=== PATIENT | female | born 1960 | race Caucasian/White ===

== ENCOUNTER → 2021-04-02 11:27 | Outpatient (CLI) | payer OTHER, SELFPAY ==
--- NOTE | 2021-04-02 11:32 | XR_ITS ---
PROCEDURE: XR CHEST PORTABLE CLINICAL HISTORY: COVID OUTPATIENT COMPARISON: CR CXR CHEST(2 VIEWS-NOT PORTABLE) from 04/23/2014 CR CXR CHEST(2 VIEWS-NOT PORTABLE) from 09/17/2015 FINDINGS: The cardiomediastinal silhouette and pulmonary vascularity are within normal limits. The lungs are clear without infiltrates, suspicious nodules, or pleural effusions. No acute bony abnormalities. IMPRESSION: No acute findings. Dictated by: Reuben Cruz MD 04/02/2021 12:07 Reuben Cruz MD in OV 04/02/2021 12:07
[2021-04-02 12:00] LABS: Influenza A, PCR Not Detected (NotDetected); Influenza B, PCR Not Detected (NotDetected)
[2021-04-02 12:13] LABS: Basophils # 0.1 K/mm3 (0-0.2); Eosinophils # 0.2 K/mm3 (0.0-0.4); Eosinophils % 4.4 % (0.1-12.0); Hemoglobin 14.4 g/dL (12.2-16.2); Lymphocytes # 1.7 K/mm3 (0.7-4.5); Mean Corpuscular Hemoglobin 30.4 pg (27.0-31.2); Mean Corpuscular Volume 94.9 fl (81-99); Mean Platelet Volume 10.3 fl (7.4-10.4); Monocytes # 0.3 K/mm3 (0.1-1.0); Monocytes % 5.8 % (1.7-9.3); Neutrophils # 2.9 K/mm3 (1.8-7.8); Neutrophils % 55.8 % (37.0-80.0); Platelet Count 135 K/mm3 (142-424); Red Blood Count 4.74 M/mm3 (4.20-5.40); Red Cell Distribution Width 15.2 % (11.5-17.5); White Blood Count 5.1 K/mm3 (4.8-10.8)
[2021-04-02 13:37] LABS: Coronavirus 19, PCR Detected (NotDetected)
== END ==
PROVIDERS: PCP Family Medicine; Visit Provider Nurse Practitioner
DX: U07.1 COVID-19 (principal)
CPT/HCPCS: 36415; 71045; 85025; C9803; U0003; U0005

== ENCOUNTER → 2021-04-04 08:10 | Outpatient (CLI) | payer OTHER, SELFPAY ==
[2021-04-04] VITALS (9 sets, daily range): BP systolic 148–174; BP diastolic 71–89; PULSE 55–60; RESP 18; TEMP 36.4–37; O2SAT 90–97
--- NOTE | 2021-04-04 10:07 | PC.NURSE ---
PT DISCHARGED HOME AT THIS TIME. PT STABLE
== END | disposition home or self-care (01) ==
LOC: COVID.OUT 04-16 06:11 → INF 04-16 06:11
PROVIDERS: PCP Nurse Practitioner; Visit Provider Nurse Practitioner
DX: U07.1 COVID-19 (principal); Z23 Encounter for immunization
CPT/HCPCS: 96365

== ENCOUNTER → 2021-10-06 08:16 | Outpatient (CLI) | payer OTHER, SELFPAY | PROVIDERS: PCP Family Medicine; Visit Provider Internal Medicine | DX: Z01.812 Encounter for preprocedural laboratory examination (principal); Z20.822 Contact with and (suspected) exposure to COVID-19; R13.10 Dysphagia, unspecified | CPT/HCPCS: C9803; U0003; U0005 ==

== ENCOUNTER 2021-10-08 09:36 | Day surgery (SDC) | payer OTHER, SELFPAY ==
[2021-10-02 14:22] VITALS: BMI 31.1
[2021-10-08 10:34] VITALS: BP 141/78; PULSE 63; RESP 18; TEMP 37.1; O2SAT 94
--- NOTE | 2021-10-08 11:22 | P.PN_ITS ---
[facility] Anesthesia Checklist - Structural Data Admitted From: Home Planned Operative Procedure/s: egd Consent for Planned Operative Procedure(s) Verified: Yes - Airway Assessment C-Spine Mobility Assessed: Yes TMJ Mobility Assessed: Yes Dentition: Dentures-good fit - Neurological Assessment Level of Consciousness: Awake, Alert, Appropriate - Anesthesia Plan Anesthesia Risk discussed: Yes Anesthesia Plan: Verified ASA Class: II Anesthesia Type: MAC [facility] History I have reviewed the patient's past medical history: Yes Medical History: Reports:: Seizures (8 years ago) Denies:: Cancer, Diabetes Mellitus Type 1, Diabetes Mellitus Type 2, Internal Pacemaker, MRSA *Have you ever received a pneumonia vaccine?: No *Have you received a flu vaccine this season?: No Anesthesia experience/problems:: none Other Surgeries: No: Pacemaker Amputation: No - *Social History Last grade of school completed: High school graduate Smoking Status: Never smoker Alcohol Intake: never Substance Use Type: denies use *Occupational Status:: employed Household Members: spouse *Travel in the last 8 weeks: None Family Hx:: Cancer
[2021-10-08 11:31] VITALS: O2SAT 94
--- NOTE | 2021-10-08 11:43 | HMH.SCOPE ---
- Procedure: Date: 10/08/21 Patient Date of :: 1960 Procedure Performed:: EGD Indications:: Dysphagia Performing Provider:: Vern Larsen MD Referring Provider:: Trey Diaz MD Sedation:: See RN notes Procedure:: The gastroscope was gently passed through the incisoral orifice into the oral cavity and under direct visualization the esophagus was intubated. The endoscope was passed down the esophagus, through the stomach, and into the duodenum. Color, texture, mucosa, and anatomy of the esophagus, stomach, and duodenum were carefully examined with the scope. Findings:: Oropharynx: normal Esophagus: Schatzki ring. Cold forceps biopsies obtained to break apart the ring. Dilatation performed sequentially with 18-20 mm tts balloon. EG Junction: Measured at 35 cm Cardia: Hiatal hernia 3 cm in size Fundus: normal Body: normal Antrum: normal Duodenal bulb: normal Duodenum (second and third portion): normal Recommendations:: Return for EGD with esophageal dilatation as needed Complications:: None Estimated blood obtained (mL): 2
[2021-10-08 11:45] VITALS: BP 117/71; PULSE 83; RESP 18; TEMP 36.4; O2SAT 94
[2021-10-08 11:55] VITALS: BP 130/71; PULSE 68; RESP 18; TEMP 36.4; O2SAT 98
[2021-10-08 12:15] VITALS: BP 128/81; PULSE 72; RESP 18; TEMP 36.4; O2SAT 99
== END 2021-10-08 12:15 | disposition home or self-care (01) ==
LOC: OUTP 09:37
PROVIDERS: PCP Family Medicine; Visit Provider Internal Medicine
PROC: 0DJ08ZZ Inspection of Upper Intestinal Tract, Via Natural or Artificial Opening Endoscopic (ICD-10-PCS; CPT 43235; principal; 2021-10-08 11:00)
DX: R13.12 Dysphagia, oropharyngeal phase (principal); I10 Essential (primary) hypertension; K22.2 Esophageal obstruction; K44.9 Diaphragmatic hernia without obstruction or gangrene
CPT/HCPCS: 43249; 43239; C1726

== ENCOUNTER → 2021-10-25 08:01 | Outpatient (CLI) | payer OTHER, SELFPAY ==
--- NOTE | 2021-10-25 08:06 | XR_ITS ---
PROCEDURE INFORMATION: Exam: XR Right Knee Exam date and time: 10/25/2021 8:07 AM Age: 61 years old Clinical indication: Pain; Knee; Bilateral; Additional info: Pain bilateral TECHNIQUE: Imaging protocol: Radiologic exam of the Right knee. Views: 3 views. COMPARISON: No relevant prior studies available. FINDINGS: Bones/joints: Mild degenerative changes. No evidence of an acute fracture or significant effusion. Soft tissues: Normal. IMPRESSION: No acute process.
--- NOTE | 2021-10-25 08:06 | XR_ITS ---
PROCEDURE INFORMATION: Exam: XR Left Knee Exam date and time: 10/25/2021 8:07 AM Age: 61 years old Clinical indication: Pain; Knee; Bilateral; Additional info: Bilateral knee oa TECHNIQUE: Imaging protocol: Radiologic exam of the Left knee. Views: 3 views. COMPARISON: No relevant prior studies available. FINDINGS: Bones/joints: Mild degenerative changes. No evidence of an acute fracture or significant effusion. Soft tissues: Normal. IMPRESSION: No acute process.
== END ==
PROVIDERS: PCP Family Medicine; Visit Provider Family Medicine
DX: M17.0 Bilateral primary osteoarthritis of knee (principal)
CPT/HCPCS: 73562

== ENCOUNTER 2022-03-19 10:00 | Outpatient (RCR) | payer OTHER, SELFPAY | END 2022-03-19 10:05 | disposition home or self-care (01) | LOC: PT 10:00 | PROVIDERS: PCP Family Medicine; Visit Provider Family Medicine | DX: M17.0 Bilateral primary osteoarthritis of knee | CPT/HCPCS: 97110; 97163; 97164; 97530 ==

== ENCOUNTER → 2022-04-27 14:39 | Outpatient (CLI) | payer OTHER, SELFPAY ==
--- NOTE | 2022-04-27 14:44 | CT_ITS ---
FINAL REPORT CLINICAL HISTORY: HX OF SMOKING, quit 2 years ago. smoked 1 ppd x 14 years. FINDINGS: Axial images were obtained from the lung apex to the mid abdomen by computed tomography. Low-dose protocol was utilized. CTDl vol(mGy): 2.90 DLP (mGy-cm): 106.55 FINDINGS: There is no axillary adenopathy. There is no hilar or mediastinal adenopathy. The heart size is normal. Moderate coronary artery calcifications are noted. There is no pericardial or pleural effusion. Limited images of the upper abdomen demonstrate a small hiatal hernia. Lung window images demonstrate no suspicious infiltrate or nodule. There is mild scarring. IMPRESSION: Lung RADS category 1. Recommend 12 month follow-up low-dose chest CT. Reviewed, Interpreted and Dictated by Dion Worthy III, MD Transcribed by Radhika Velazquez Authenticated and . [facility]
--- NOTE | 2022-04-27 14:44 | MM_ITS ---
PROCEDURE INFORMATION: Exam: MG Bilateral Screening 3D Mammography Exam date and time: 04/27/2022 2:54 PM Age: 61 years old Clinical indication: Screening. Her maternal grandmother had breast cancer. TECHNIQUE: Imaging protocol: Bilateral Screening tomosynthesis and 2D mammography including computer-aided detection (CAD) when performed. COMPARISON: No relevant prior studies available.If prior mammograms are provided, I am happy to add an addendum. FINDINGS: MAMMOGRAPHY: Breast composition: There are scattered areas of fibroglandular density. Mass: None. Architectural distortion/Asymmetric density: Right focal asymmetry and architectural distortion, up to 2.0 cm, in the right breast at 12 o'clock, middle to posterior 3rd, approximately 7-11 cm from the nipple, best seen CC frame 61 bend MLO frame 58. Calcifications: No suspicious calcifications. Skin thickening: None. Axillary adenopathy: None. IMPRESSION: Patient will be recalled for right diagnostic spot compression in CC and MLO projections as well as full field lateral and right sonography for further evaluation of right focal asymmetry and architectural distortion. If prior mammograms are provided, am happy to an addendum. ASSESSMENT: BI-RADS Category 0: Incomplete- Need Additional Imaging Evaluation and/or Prior Mammograms for Comparison
== END ==
PROVIDERS: PCP Family Medicine; Visit Provider Family Medicine
DX: Z87.891 Personal history of nicotine dependence (principal); Z12.2 Encounter for screening for malignant neoplasm of respiratory organs; Z12.31 Encounter for screening mammogram for malignant neoplasm of breast
CPT/HCPCS: 71271; 77063; 77067

== ENCOUNTER → 2022-05-19 14:26 | Outpatient (CLI) | payer OTHER, SELFPAY ==
--- NOTE | 2022-05-19 14:29 | MM_ITS ---
To PROCEDURE INFORMATION: Exam: US Right Breast, Complete MG Right Diagnostic Breast Tomosynthesis Exam date and time: 05/19/2022 3:07 PM Age: 61 years old Clinical indication: Recall on the basis of screening mammogram 04/27/2022 further evaluation right focal asymmetry and architectural distortion. TECHNIQUE: Imaging protocol: Complete ultrasound of all four quadrants of the Right breast and the retroareolar regions, including ultrasound of the axilla when performed. Right Diagnostic tomosynthesis and 2D mammography including computer-aided detection (CAD) when performed. Unilateral or bilateral exam. COMPARISON: MG MM DIG MAMM DX UNILAT RT CAD 05/19/2022 2:32 PM FINDINGS: MAMMOGRAPHY: Spot compression demonstrates persistent suspicious 2.0 cm focal asymmetry and architectural distortion in the right breast at 12 o'clock middle to posterior 3rd. ULTRASOUND: Right sonography, all 4 quadrants, retroareolar and axilla demonstrate no sonographic findings and sonographically unremarkable right axillary lymph node. IMPRESSION: Stereotactic biopsy recommended for suspicious right 12 o'clock focal asymmetry and architectural distortion. ASSESSMENT: BI-RADS Category 4: Suspicious
== END ==
PROVIDERS: PCP Family Medicine; Visit Provider Physician Assistant
DX: R92.8 Other abnormal and inconclusive findings on diagnostic imaging of breast (principal); N63.10 Unspecified lump in the right breast, unspecified quadrant
CPT/HCPCS: 76641; 77061; 77065; G0279

== ENCOUNTER → 2022-06-01 07:46 | Outpatient (CLI) | payer OTHER, SELFPAY ==
--- NOTE | 2022-06-01 07:54 | MM_ITS ---
FINAL REPORT CLINICAL HISTORY: post us biopsy, clip placement COMPARISON: 04-27-22 FINDINGS: STEREOTACTIC GUIDED RIGHT BREAST BIOPSY, CLIP PLACEMENT, AND POST BIOPSY MAMMOGRAM Indication: Abnormal mammogram/density/mass Findings: The stereotactic guided breast biopsy procedure was explained in detail to the patient including potential risk and benefits. The patient voiced an understanding of the procedure, was given an opportunity to ask questions, after which informed consent was obtained. The patient was positioned upon the stereotactic unit in the supine position. A superior to inferior approach was utilized. The breast was prepped in the usual sterile fashion. Subcutaneous soft tissues were anesthetized with lidocaine with epinephrine. Subsequently, with intermittent stereotactic guidance, the stereotactic biopsy needle was advanced into the breast in the region of the mammographic abnormality corresponding to recent diagnostic mammogram. Multiple vacuum assisted core samples were obtained. Sampling was thought to be adequate and the biopsy clip marker was deployed in the region of biopsy. Additional imaging as detailed below was performed. Post procedure routine CC and MLO view mammogram: Post biopsy changes. Biopsy marker clip noted to be in the appropriate location. Postbiopsy changes with small amount of hemorrhage would obscure the region of the underlying asymmetric density. Patient tolerated the procedure well. No immediate complications. IMPRESSION: 1. Technically successful stereotactic guided biopsy of right breast lesion asymmetric density 2. Biopsy marker clip deployed 3. Post biopsy mammogram obtained as above Authenticated and ERN
== END ==
PROVIDERS: PCP Family Medicine; Visit Provider Physician Assistant
DX: R92.8 Other abnormal and inconclusive findings on diagnostic imaging of breast (principal)
CPT/HCPCS: 19081; 77065

== ENCOUNTER 2024-01-04 12:50 | Outpatient (CLI) | payer OTHER, SELFPAY ==
[2024-01-04 20:06] LABS: Basophils # 0.1 K/mm3 (0-0.2); Basophils % 1.5 % (0.1-2.0); Eosinophils # 0.6 K/mm3 (0.0-0.4); Eosinophils % 7.8 % (0.1-12.0); Hematocrit 46.3 % (37.0-47.0); Hemoglobin 13.8 g/dL (12.2-16.2); Lymphocytes # 2.3 K/mm3 (0.7-4.5); Lymphocytes % 32.3 % (10-50); Mean Corpuscular HGB Conc 29.8 g/dL (31.8-35.4); Mean Corpuscular Volume 107.5 fl (81-99); Mean Platelet Volume 10.7 fl (7.4-10.4); Monocytes # 0.4 K/mm3 (0.1-1.0); Neutrophils # 3.7 K/mm3 (1.8-7.8); Neutrophils % 52.4 % (37.0-80.0); Platelet Count 193 K/mm3 (142-424); Red Blood Count 4.31 M/mm3 (4.20-5.40); Red Cell Distribution Width 16.6 % (11.5-17.5); White Blood Count 7.1 K/mm3 (4.8-10.8)
[2024-01-04 22:33] LABS: Alanine Aminotransferase 34 U/L (12-78); Albumin Level 4.3 g/dl (3.5-5.0); Albumin/Globulin Ratio 1.4 (1.1-1.8); Alkaline Phosphatase 82 U/L (38-126); Aspartate Amino Transferase 35 U/L (14-36); Bilirubin,Total 0.5 mg/dl (0.2-1.3); Blood Urea Nitrogen 29 mg/dl (7-17); Calcium 10.4 mg/dl (8.4-10.2); Carbon Dioxide 25 mmol/L (22.0-30.0); Chloride 107 mmol/L (98-107); Estimated Glomerular Filt Rate 56 ml/min (>60); GFR (African American) 68 ML/MIN (>60); Glucose 97 mg/dl (74-100); Sodium 141 mmol/L (136-145); Total Protein,Serum 7.3 g/dl (6.3-8.2)
[2024-01-04 22:56] LABS: Thyroid Stimulating Hormone 0.96 uIU/mL (0.465-4.68)
[2024-01-04 23:16] LABS: Vitamin B12 > 1000 pg/mL (239-931)
[2024-01-16 03:37] LABS: 1,25 Dihydroxy Vitamin D 22 pg/mL (.); 1,25-Dihydroxy, Vitamin D-2 <10 pg/mL (.); 1,25-Dihydroxy, Vitamin D-3 22 pg/mL (.)
== END 2024-01-04 23:59 | disposition home or self-care (01) ==
LOC: LAB.DROPOF 01-05 13:50
PROVIDERS: PCP Family Medicine; Visit Provider Family Medicine
DX: R53.83 Other fatigue (principal); I10 Essential (primary) hypertension; Z86.000 Personal history of in-situ neoplasm of breast
CPT/HCPCS: 80050; 80053; 82607; 82652; 84443; 85025

== ENCOUNTER 2024-04-04 14:00 | Outpatient (CLI) | payer OTHER, SELFPAY ==
[2024-04-04 18:21] LABS: Coronavirus 19, PCR Not Detected (NotDetected); Influenza A, PCR Not Detected (NotDetected); Influenza B, PCR Not Detected (NotDetected)
[2024-04-04 18:28] LABS: Basophils # 0.1 K/mm3 (0-0.2); Basophils % 1.4 % (0.1-2.0); Eosinophils # 0.4 K/mm3 (0.0-0.4); Eosinophils % 5.1 % (0.1-12.0); Hematocrit 43.2 % (37.0-47.0); Hemoglobin 14.3 g/dL (12.2-16.2); Lymphocytes # 2.3 K/mm3 (0.7-4.5); Lymphocytes % 28.3 % (10-50); Mean Corpuscular Hemoglobin 33.7 pg (27.0-31.2); Mean Corpuscular Volume 102.1 fl (81-99); Mean Platelet Volume 10.3 fl (7.4-10.4); Monocytes # 0.4 K/mm3 (0.1-1.0); Monocytes % 5.4 % (1.7-9.3); Neutrophils # 4.8 K/mm3 (1.8-7.8); Neutrophils % 59.8 % (37.0-80.0); Platelet Count 200 K/mm3 (142-424); Red Blood Count 4.23 M/mm3 (4.20-5.40)
== END 2024-04-04 23:59 | disposition home or self-care (01) ==
LOC: LAB.DROPOF 04-05 07:46
PROVIDERS: PCP Family Medicine; Visit Provider Family Medicine
DX: J06.9 Acute upper respiratory infection, unspecified (principal)
CPT/HCPCS: 85025; 87636

== ENCOUNTER 2024-07-11 10:06 | Outpatient (CLI) | payer OTHER, SELFPAY ==
[2024-07-11 21:35] LABS: Albumin Level 4.5 g/dl (3.5-5.0); Chloride 103 mmol/L (98-107); Sodium 139 mmol/L (136-145)
[2024-07-11 21:36] LABS: Potassium 5.5 mmoL/L (3.5-5.1)
[2024-07-11 21:38] LABS: Alanine Aminotransferase 26 U/L (12-78); Albumin/Globulin Ratio 1.7 (1.1-1.8); Anion Gap 14.5 mEq/L (5-15); Aspartate Amino Transferase 27 U/L (14-36); Blood Urea Nitrogen 32 mg/dl (7-17); Carbon Dioxide 27 mmol/L (22.0-30.0); Estimated Glomerular Filt Rate 35 ml/min (>60); GFR (African American) 43 ML/MIN (>60); Globulin 2.7 g/dL (1.3-3.2); Total Protein,Serum 7.2 g/dl (6.3-8.2)
[2024-07-11 21:39] LABS: Alkaline Phosphatase 112 U/L (38-126); Bilirubin,Total 0.4 mg/dl (0.2-1.3); Glucose 87 mg/dl (74-100)
== END 2024-07-11 23:59 | disposition home or self-care (01) ==
LOC: LAB.DROPOF 07-12 10:07
PROVIDERS: PCP Family Medicine; Visit Provider Family Medicine
DX: I10 Essential (primary) hypertension (principal)
CPT/HCPCS: 80053

== ENCOUNTER 2024-07-13 12:32 | Outpatient (CLI) | payer OTHER, SELFPAY ==
[2024-07-13 13:19] LABS: Chloride 104 mmol/L (98-107); Sodium 138 mmol/L (136-145)
[2024-07-13 13:22] LABS: Blood Urea Nitrogen 27 mg/dl (7-17); Estimated Glomerular Filt Rate 46 ml/min (>60); GFR (African American) 55 ML/MIN (>60)
[2024-07-13 13:23] LABS: Calcium 9.8 mg/dl (8.4-10.2); Carbon Dioxide 27 mmol/L (22.0-30.0); Glucose 119 mg/dl (74-100)
== END 2024-07-13 23:59 | disposition home or self-care (01) ==
LOC: LAB 12:33
PROVIDERS: PCP Family Medicine; Visit Provider Family Medicine
DX: E87.5 Hyperkalemia (principal)
CPT/HCPCS: 36415; 80048

== ENCOUNTER 2024-09-24 13:45 | Emergency (ER) | payer OTHER, SELFPAY ==
[2024-09-24 14:25] VITALS: BP 152/92; PULSE 122; RESP 18; TEMP 37; O2SAT 99; BMI 31.8
[2024-09-24 15:30] VITALS: BP 147/93; PULSE 124; O2SAT 96
--- NOTE | 2024-09-24 15:37 | PC.NURSE ---
Dr Jonas at bedside suturing lac
--- NOTE | 2024-09-24 15:50 | HMH.EDGENADL ---
Discharge Plan Disposition Patient Disposition: Home, Self-Care Prescriptions Prescriptions: New cephalexin 500 mg capsule 1,000 mg PO BID 7 Days Qty: 28 0RF No Action Acidophilus Capsule 100 mg PO DAILY calcium polycarbophil 625 mg tablet 1,250 mg PO DAILY mecobalamin (vitamin B12) 5,000 mcg tablet,chewable 5,000 mcg PO DAILY calcium citrate 1,000 mg tablet 1,200 mg PO DAILY Acidophilus Capsule 2,000 mmu cells PO DAILY telmisartan 20 mg tablet 20 mg PO DAILY Qty: 30 2RF furosemide 20 mg tablet 20 mg PO DAILY Patient Comments: TAKE ONE TABLET BY MOUTH EVERY DAY letrozole 2.5 mg tablet 2.5 mg PO HS Patient Comments: TAKE 1 TABLET ORALLY ONCE DAILY allopurinol 300 mg tablet 300 mg PO DAILY Qty: 90 1RF divalproex 250 mg tablet,delayed release (DR/EC) 500 mg PO DAILY Qty: 180 1RF pregabalin 75 mg capsule 75 mg PO HS Qty: 60 3RF albuterol sulfate 90 mcg/actuation HFA aerosol inhaler 1 puff inhalation DAILYP PRN (Reason: copd) Qty: 8.5 2RF tramadol 50 mg tablet 50 mg PO .FOUR TIMES DAILY PRN (Reason: pain) Qty: 90 1RF esomeprazole magnesium 40 mg capsule,delayed release(DR/EC) See Rx Instructions .ROUTE .COMPLEX Qty: 90 1RF Dose Instruction: TAKE ONE CAPSULE BY MOUTH EVERY DAY Rx Instructions: TAKE ONE CAPSULE BY MOUTH EVERY DAY metoclopramide HCl 5 mg tablet 2.5 mg PO TID PRN (Reason: GERD) Referrals Follow up/Referrals: Loc Wall DO [Primary Care Provider] - See instructions Activity Restrictions/Add. Instructions Additional Instructions/Restrictions: Call your family doctor to establish care for this visit to the emergency department and schedule follow-up within 48 hours to ensure improvement. If you have any worsening of your condition or any other concerning signs or symptoms, return to the emergency department or your primary care doctor for further evaluation. Warm soapy water, dab dry. Keflex twice daily for 5 days Clinical Impressions Clinical Impression: Laceration of leg Instructions Patient Instructions: DI for Laceration Repair Print Language Print Language: Brazilian Discharge ED Provider: Atul Jonas General Adult HPI General Chief complaint: Wound/Laceration Stated complaint: [id number] laceration L leg Time Seen by Provider: 09/24/24 15:04 Mode of Arrival: Ambulatory Source of Information: Patient Description of Symptoms (Recalled from ER Triage Doc. by RN): Pt presents for evaluation of left leg laceration after being shoved by her cow. Pt states the cow shoved her into a fence post and the fence pot went into her leg. Pt states her t-dap is not up to date. Pt noted to have swelling to her inner left foot. History of Present Illness HPI narrative: Please note that above description of symptoms, in this electronic medical record under categorization of recalled from ER triage doctor by RN are reflective of an initial nursing assessment, however, is not reflective of my full history and physical exam that was personally taken and clarified. Consequentially, this preceding description of symptoms, which may include the patient's categorized chief complaint in the EMR, do not reflect my personal clinical impression, and the ultimate description of history of present illness and patient stated complaints should be deferred to this section of the note. Unless stated otherwise or congruent with this section of the note, additional signs, symptoms, or incongruence should be interpreted as inaccurate with my clinical impression. Related Data Home Medications ?Medication ?Instructions ?Recorded ?Confirmed Lactobacillus acidophilus 2,000 mmu cells PO DAILY 09/01/24 09/22/24 (Acidophilus capsule) Lactobacillus acidophilus 100 mg PO DAILY 09/01/24 09/22/24 (Acidophilus capsule) calcium citrate 1,000 mg tablet 1,200 mg PO DAILY 09/01/24 09/22/24 calcium polycarbophil 625 mg tablet 1,250 mg PO DAILY 09/01/24 09/22/24 furosemide 20 mg tablet 20 mg PO DAILY 09/01/24 09/22/24 mecobalamin (vitamin B12) 5,000 5,000 mcg PO DAILY 09/01/24 09/22/24 mcg chewable tablet metoclopramide HCl 5 mg tablet 2.5 mg PO TID PRN GERD 09/01/24 09/22/24 letrozole 2.5 mg tablet 2.5 mg PO HS 09/22/24 09/22/24 Previous Rx's ?Medication ?Instructions ?Recorded allopurinol 300 mg tablet 300 mg PO DAILY gout #90 tabs 04/04/24 albuterol sulfate 90 mcg/actuation 1 puff inhalation DAILYP PRN copd 07/03/24 aerosol inhaler #8.5 grams divalproex 250 mg tablet,delayed 500 mg (2 x 250 mg) PO DAILY 07/11/24 release seizures #180 tabs pregabalin 75 mg capsule 75 mg PO HS #60 caps 07/11/24 tramadol 50 mg tablet 50 mg PO .FOUR TIMES DAILY PRN 08/23/24 pain #90 tabs telmisartan 20 mg tablet 20 mg PO DAILY #30 tabs 09/01/24 esomeprazole magnesium 40 mg See Rx Instructions .Route 09/21/24 capsule,delayed release .COMPLEX #90 caps cephalexin 500 mg capsule 1,000 mg (2 x 500 mg) PO BID 7 09/24/24 days #28 caps Allergies Allergy/AdvReac Type Severity Reaction Status Date / Time No Known Allergies Allergy Verified 09/22/24 13:17 [facility] Disclaimer: The information contained in this section may have been updated after the patient was seen, as this information can be updated by other users. Medical History Bilateral chronic knee pain Breast cancer Chronic pain of lower extremity, bilateral Fatigue History of ductal carcinoma in situ (DCIS) of right breast History of lump of right breast Hypertension Invasive ductal carcinoma of right breast URI, acute Surgical History H/O lymph node biopsy History of tooth extraction Hx of lumpectomy Right breast Social History (Updated 09/22/24 @ 13:28 by Elba Ely CMA) Smoking Status: Never smoker smoking status stop date: 1999 how long ago did patient quit smokin years ago alcohol intake: former substance use type: denies use current occupational status: unemployed Travel in the last 8 weeks?: None household members: spouse current occupation: [employer] Have you lived/traveled outside [place] in past 30 days?: No Contact w/someone who lives/traveled outside [place] past 30 days?: No Exposure to someone with infectious disease in past 14 days?: No Do you have a fever (greater than 100.4 F or 38 C)?: No Have you tested positive for COVID-19?: No Exposed to someone with COVID-19 in past 14 days?: No Do you have a sore throat?: No Do you have a cough?: No Do you have any weakness?: No Do you have any diarrhea?: No Are you experiencing any unusual bleeding?: No Do you have any muscle aches/pain?: No Do you have any abdominal pain?: No Are you experiencing loss of taste or smell?: No Other Medical History Have you received the Flu Vaccine for this season: No Have you received the Pneumonia Vaccine: No ROS Obtained: Yes All systems reviewed & no additional complaints except as documented Physical Exam General General appearance: alert Head Head exam: atraumatic and normocephalic Eye Eye exam: Present normal appearance, PERRL and EOMI Neck Neck exam: Present normal inspection, full ROM and trachea midline Respiratory Respiratory exam: Absent respiratory distress, wheezes, stridor, accessory muscle use or prolonged expiratory phase Cardiovascular Cardiovascular exam: Present other (Pulses equal symmetric in upper and lower extremities) Abdominal Exam Abdominal exam: Present soft; Absent distention, tenderness or pulsatile mass Extremities Exam Extremities exam: Absent edema Neurological Exam Neurological exam: Present alert, oriented X3 and CN II-XII intact; Absent motor sensory deficit Skin Skin exam: Present warm and dry; Absent diaphoresis or erythema Medical Decision Making Medical Records Medical records reviewed: Yes I reviewed the patient's medical records. Screening: Per USPSTF and CDC recommendations, given the prevalence of disease in our region, it is our hospital?s policy to screen for HIV and viral Hepatitis for all patients aged 18 and over and those with ongoing risk factors. Mike Inquiry Pt receiving controlled substance: No Mike was queried for this patient: No Vital Signs: 09/24/24 14:25 09/24/24 15:30 Temperature 98.6 F Temperature Source Oral Pulse Rate 124 H Pulse Rate [Right] 122 H Respiratory Rate 18 Blood Pressure 147/93 H Blood Pressure [Left Arm] 152/92 H Blood Pressure Mean [Left Arm] 112 Blood Pressure Source [Left Arm] Automatic Cuff Blood Pressure Position [Left Arm] Sitting 02 Sat by Pulse Oximetry 99 96 Oxygen Delivery Method Room Air Room Air Orders (Tests/Meds): ED MEDICATIONS Discontinued Medications Generic Name Dose Route Start Last Admin Trade Name Freq PRN Reason Stop Dose Admin Lidocaine HCl 20 ml 09/24/24 15:19 09/24/24 15:53 Lidocaine 1% 20ml Mdv IJ 09/24/24 15:20 20 ml ONCE ONE Administration Tetanus/Reduced Diphtheria/Acell Pertussis 0.5 ml 09/24/24 15:20 09/24/24 15:54 Tet/Diphth/Pert-Adult 0.5ml Syringe IM 09/24/24 15:21 0.5 ml .ONCE ONE Administration Medical Decision Narrative: This a 64-year-old female history of hypertension presenting with laceration to the posterior aspect of her left leg. She was outside trying to wrangle cows into a trailer when one of the cows pushed her, caused her to be thrown, more or less, into a aluminum fence and caught part of the hardware on the back of her left calf. Did not sustain any other trauma. Came in for further evaluation given. Does not remember last tetanus shot. It is moderately painful, made worse with bearing weight, she is able to bear weight, but has pain with it. Not on thinners, no history of diabetes. History obtained with patient. On arrival, very clinically well. She has a 4 cm complex laceration to the posterior aspect of her left calf. It was irrigated extensively, on further evaluation after irrigation, violates through subcutaneous tissue, but not into muscle tissue. No deeps were required. Was closed with 7 nylon sutures and dressed with iodoform gauze. Because patient at baseline without signs or symptoms of clinical decompensation, deemed appropriate for discharge. Results were relayed to patient who voiced understanding and were agreeable to outpatient management and follow up. I discussed my clinical impression with patient and answered all questions. At this time, the evidence for any other entities in the differential is insufficient to warrant any further testing or ED observation. This was explained as well. Advisory was given that persistent or worsening symptoms require further evaluation. I confirmed the understanding of this discussion. [employer] disclaimer Much of this encounter note is an electronic property manager spoken language to printed text. Electronic property manager of the spoken language may permit errors. Although I have reviewed the note, some errors may still exist. Procedures Laceration Laceration 1: Site: lower extremity Side (If applicable): left Size (cm): 4 Description: flap, irregular and clean Depth: simple, single layer Local Anesthetic: lidocaine 1% Amount of anesthesia used (mL): 5 Pre-repair: wound explored, irrigated extensively and deep structures intact Skin layer closed with: nylon Size (cm): 3-0 Number of sutures: 7 Technique: simple, interrupted Critical Care Critical Care Time Critical Care Time: No
[2024-09-24] MEDS: LIDOCAINE 1% 20ML MDV 20 ML IJ (15:53)
[2024-09-24] MEDS: TET/DIPHTH/PERT-ADULT 0.5ML SYRINGE 0.5 ML IM (15:54)
[2024-09-24 16:06] VITALS: BP 147/83; PULSE 116; RESP 18; TEMP 36.9; O2SAT 99
== END 2024-09-24 16:08 | disposition home or self-care (01) ==
PROVIDERS: Emergency Provider Emergency Medicine; PCP Internal Medicine
DX: S81.812A Laceration without foreign body, left lower leg, initial encounter (principal); W55.22XA Struck by cow, initial encounter; Z23 Encounter for immunization
CPT/HCPCS: 12002; 90471; 90715; 99283

== ENCOUNTER 2025-01-10 08:49 | Day surgery (SDC) | payer OTHER, SELFPAY ==
[2025-01-05 11:55] VITALS: BMI 30.4
--- NOTE | 2025-01-09 10:42 | EXP.HP ---
History of Present Illness *Admission Date: 01/10/25 *History of present illness: Mrs. Tran is a 64-year-old female who is here for screening colonoscopy. The examination is deemed medically necessary for screening colonoscopy. The patient has been seen, interviewed and examined prior to the procedure by both myself and the anesthesia provider. [facility] Disclaimer: The information contained in this section may have been updated after the patient was seen, as this information can be updated by other users. Medical History Bilateral chronic knee pain Breast cancer Chronic pain of lower extremity, bilateral Fatigue History of ductal carcinoma in situ (DCIS) of right breast History of lump of right breast Hypertension Invasive ductal carcinoma of right breast URI, acute Surgical History H/O lymph node biopsy History of tooth extraction Hx of lumpectomy Right breast Family History (Updated 01/05/25 @ 11:46 by Madison Rosenthal RN) Father Heart disease Mother Multiple sclerosis Social History Smoking Status: Former smoker tobacco type: cigarettes packs per day: 1 smoking status stop date: 1999 how long ago did patient quit smokin years ago alcohol intake: former substance use type: denies use current occupational status: retired Travel in the last 8 weeks?: None household members: spouse current occupation: [employer] Other Medical History Have you received the Flu Vaccine for this season: No Have you received the Pneumonia Vaccine: No Review of Systems Review of Systems Review of systems (narrative): Negative *Cardiovascular Comments: Negative *Gastrointestinal Comments: Negative *Genitourinary Comments: Negative *Musculoskeletal Comments: Negative *Neurologic Comments: Negative Meds Home Medications and Allergies Home Medications ?Medication ?Instructions ?Recorded ?Confirmed ?Type albuterol sulfate 90 mcg/actuation 1 puff inhalation DAILYP PRN copd 07/03/24 01/05/25 Rx aerosol inhaler #8.5 grams pregabalin 75 mg capsule 75 mg PO HS #60 caps 07/11/24 01/05/25 Rx Lactobacillus acidophilus 2,000 mmu cells PO DAILY 09/01/24 01/05/25 History (Acidophilus capsule) calcium citrate 1,000 mg tablet 1,200 mg PO DAILY 09/01/24 01/05/25 History furosemide 20 mg tablet 20 mg PO DAILY 09/01/24 01/05/25 History metoclopramide HCl 5 mg tablet 2.5 mg PO TID PRN GERD 09/01/24 01/05/25 History esomeprazole magnesium 40 mg See Rx Instructions .Route 09/21/24 01/05/25 Rx capsule,delayed release .COMPLEX #90 caps mecobalamin (vitamin B12) 2,500 2,500 mcg PO DAILY 10/06/24 01/05/25 History mcg chewable tablet telmisartan 40 mg tablet 40 mg PO DAILY #30 tabs 10/20/24 01/05/25 Rx tramadol 50 mg tablet 100 mg (2 x 50 mg) PO .FOUR TIMES 10/20/24 01/05/25 Rx DAILY PRN pain #240 tabs divalproex 250 mg tablet,delayed See Rx Instructions .Route 11/16/24 01/05/25 Rx release .COMPLEX #270 tabs metoclopramide HCl 5 mg tablet See Rx Instructions .Route 11/21/24 01/05/25 Rx .COMPLEX #90 tabs letrozole 2.5 mg tablet See Rx Instructions .Route 11/23/24 01/05/25 Rx .COMPLEX #60 tabs allopurinol 300 mg tablet See Rx Instructions .Route 12/27/24 01/05/25 Rx .COMPLEX #90 tabs sodium,potassium,mag sulfates 17.5 See Rx Instructions PO .COMPLEX 12/27/24 01/05/25 Rx gram-3.13 gram-1.6 gram oral soln #354 mL (Suprep Bowel Prep Kit) metoprolol succinate 25 mg See Rx Instructions .Route 01/04/25 01/05/25 Rx tablet,extended release 24 hr .COMPLEX #90 tabs New Prescriptions to Start Prescriptions: Allergies Allergy/AdvReac Type Severity Reaction Status Date / Time No Known Allergies Allergy Verified 01/05/25 11:47 Exam *Routine HEENT Exam Head: Present normocephalic Eye: Present EOMI and PERRL ENT: Present mucous membranes moist *Routine Neck Exam Neck: Present supple *Routine Respiratory Exam Respiratory: Present CTA bilaterally *Routine Cardiovascular Exam Cardiovascular: Present RRR *Routine Abdominal Exam Abdominal: Present soft and normoactive bowel sounds; Absent tenderness *Routine Rectal Exam Rectal:: deferred *Routine Genitalia Exam Genitalia:: deferred *Routine Extremities Exam Extremities: Absent cyanosis, clubbing or edema *Routine Skin Exam Skin: Present warm; Absent rash *Routine Neurological Exam Neurological: Present alert and oriented X3 Assessment and Plan *Assessment and plan (1) Screening for colon cancer: Status: Acute Category: Medical Code(s): Z12.11 - Encounter for screening for malignant neoplasm of colon Plan A/P: 1. Screening for colon cancer is the preprocedural diagnosis. The patient will be anesthetized/sedated using MAC sedation. The patient has been seen and examined. Cardiac and lung assessment prior to the examination is stable. Proceed with planned screening colonoscopy.
--- NOTE | 2025-01-10 09:05 | SUR.PREOP ---
Pt here for scheduled colonoscopy. Pt reports she was unable to keep the second part of prep down. Pt reports she is still passing solid stool. Dr Graff notified orders received to have pt reschedule with office. Pt wanted to call office to reschedule once she gets home.
== END 2025-01-10 09:13 | disposition home or self-care (01) ==
LOC: OUTP 08:50
PROVIDERS: PCP Internal Medicine; Visit Provider Internal Medicine Gastroenterology
PROC: 0DJD8ZZ Inspection of Lower Intestinal Tract, Via Natural or Artificial Opening Endoscopic (ICD-10-PCS; CPT 45378; principal; 2025-01-10 11:00)
DX: Z12.11 Encounter for screening for malignant neoplasm of colon (principal); Z53.8 Procedure and treatment not carried out for other reasons

== ENCOUNTER 2025-03-12 10:38 | Outpatient (CLI) | payer OTHER, SELFPAY ==
--- OUTSIDE RECORDS SUMMARY | 2023-10-25 08:30 | XMS_ITS ---
Author Organization [facility] Address [address] [place] [id number] Care Team Providers Care Registered Nurse Maternal Child Name Role Phone Cait Patel Primary Care Provider [phone] Doug Montalvo Unavailable [phone] Prabhjot Diaz Unavailable [phone] Allergies Allergen (clinical drug ingredient) Drug/Non Drug Allergy documented on EMR Reaction Allergy Type Onset Date Status aspirin Aspirin sick to stomach Drug Allergy A ctive phenytoin Dilantin Hallucinations Drug Allergy Ac tive Results Component Value Reference Range Notes P-Basic Metabolic Panel (BMP ) Reviewed date:10/26/2023 11:14:05 AM Interpretation:satisfactory Performing Lab: Notes/Report: Test performed by [employer] [address] [place] [address] , [address], [place] [address] Rajesh Sandra MD, Pt Sitter CLIA: [id number] Sodium 141 135-145 mEq/L Potassium 4.6 3.5-5.3 mEq/L Chloride 108 97-108 mEq/L CO2 21 22-32 mEq/L Glucose 100 65-99 mg/dL BUN 23 8-23 mg/dL Creatinine 0.78 0.50-1.00 mg/dL Calcium 9.8 8.6-10.4 mg/dL eGFR by Creatinine 86 >59 mL/min/1.73m2 REASON FOR VISIT 3 months, Needs labs, bone density screening, & low dose chest CT Medications Medication SIG (Take, Route, Frequency, Duration) Notes Start Date End Date Status Furosemide 20 MG 1 tablet Orally Once a day 10/25/2023 Active Metoclopramide HCl 5 mg take 1/2 tablet three times a day as needed; Duration: 60 days Active Align 4 MG 1 cap(s) orally once a day; Duration: 28 day(s) 06/08/2022 Active Letrozole 2.5 MG 1 tablet Orally Once a day; Duration: 30 day(s) Active traMADol HCl 50 MG 1 tab(s) orally four times a day as needed 10/25/2023 Active Esomeprazole Magnesium 40 MG 1 capsule O rally Once a day 06/28/2023 Active Allopurinol 300 MG 1 tablet Orally Once a day 06/28/2023 Active Divalproex Sodium 250 MG 2 am, 1 pm Oral ly Two times a day 06/28/2023 Active Allopurinol 300 mg 1 tablet Orally Once a day; Duration: 90 days Active Famotidine 40 MG 1 tab(s) orally once a day (at bedtime); Duration: 30 days Active Metoprolol Tartrate 50 MG 1 tablet with food Orally Twice a day 06/28/2023 Active FIBERCON TABLETS 2 P.O. DAILY 06/08/2022 Active Vital Signs Blood pressure systolic 160 mm Hg 10/25/19 24 Blood pressure diastolic 102 mm Hg 024 Heart Rate 74 /min 10/25/2023 Height 68 in 10/25/2023 Weight 223.4 lbs 10/25/2023 BMI 33.96 kg/m2 10/25/2023 Encounters Encounter Location Date Provider Diagnosis [facility] [address] [place] [id number] 10/25/2023 Prabhjot Diaz Essential hypertensi on I10 ; Renal insufficiency N28.9 ; Hyperkalemia E87.5 ; Chronic GERD K21.9 and Other chronic pain G89.29 Assessments Encounter Date Diagnosis (ICD Code) Assessment Notes Treatment Notes Treatment Clinical Notes Section Notes 10/25/2023 Essential hypertension (ICD-10 - I10) 10/25/2023 Renal insufficiency (ICD-10 - N28.9) 10/25/2023 Hyperkalemia (ICD-10 - E87.5) 10/25/2023 Chronic GERD (ICD-10 - K21.9) 10/25/2023 Other chronic pain (ICD-10 - G89.29) Encourage decrease in Tramadol Plan Of Treatment Medication Medication Name Sig Start Date Stop Date Notes Furosemide 20 MG 1 tablet Orally Once a day 10/25/2023 Metoclopramide HCl 5 mg take 1/2 tablet three times a day as needed; Duration: 60 days traMADol HCl 50 MG 1 tab(s) orally four times a day as needed 10/25/2023 Treatment Notes Assessment Notes Other chronic pain Encourage decrease i n Tramadol Next Appt Details Follow Up: 6 Weeks, Reason: Progress Notes * JOSUE DILLONDOB:[birth year] (64 yo F)Acc No.[id number]:10/25/2023 Progress Notes Patient: JOSUE MADSEN Provider: Prabhjot Diaz M.D. :1960 A ge:63 Y S ex:Female Date:10/25/2023 Address:[address] [place] [address] [address] [facility] [id number] Pcp:Cait Patel Subjective: * Chief Complaints: * 1 . 3 months. 2. Needs labs, bone density screening, & low dose chest CT. * HPI: C ardiology: The patient is here for a check up on Hypertension and renal insufficiency. Pt states she does not check her BP at home. Pt states she is still having a lot of stress at home. Pt states she has had some low back pain for about a month. Pt denies any injury. Pt states she is needing a refill for Metoclopramide and Tramadol sent to clinic pharmacy. Denies : Chest Pain. D enies : Short of Breath. D enies : Dizziness. D enies : Palpitations. G YN: Dr. Benito ([facility]) follows patient for her breast cancer hx. * ROS: D ERMATOLOGY: no R maría elena. n o H mitchel. G ASTROENTEROLOGY: no N ausea. n o V omiting. n o D iarrhea.? U ROLOGY: no D ifficulty urinating. n o B lood in urine. * Medical History: H eadache, Seizures, COPD, Hx of smoking, Ductal carcinoma of right breast. * Surgical History: right lumpectomy, [place] [facility] October 23, 2022. * Hospitalization/Major Diagno stic Procedure: H [facility]-seizures 04/16-04/17/2011. * Family History: F ather: , diagnosed with Diabetes. M other: . 1 sister(s) . . * Social History: C URRENT TOBACCO USE S moking Status: Patient does NOT smoke. C affeine: yes, frequency:. Marital Status: . Past smoking status: previous history. Alcohol: No. * Medications: T aking Letrozole 2.5 MG Tablet 1 tablet Orally Once a day , Taking Align 4 MG Capsule 1 cap(s) orally once a day , Taking FIBERCON TABLETS 2 P.O. DAILY , Taking Famotidine 40 MG Tablet 1 tab(s) orally once a day (at bedtime) , Taking Metoclopramide HCl 5 mg Tablet take 1/2 tablet three times a day as needed , Taking Allopurinol 300 mg Tablet 1 tablet Orally Once a day , Taking Divalproex Sodium 250 MG Tablet Delayed Release 2 am, 1 pm Orally Two times a day , Taking traMADol HCl 50 MG Tablet 1 tab(s) orally four times a day as needed , Taking Metoprolol Tartrate 50 MG Tablet 1 tablet with food Orally Twice a day , Taking Allopurinol 300 MG Tablet 1 tablet Orally Once a day , Taking Esomeprazole Magnesium 40 MG Capsule Delayed Release 1 capsule Orally Once a day , Discontinued Anastrozole 1 MG Tablet 1 tab(s) orally once a day , Discontinued Triamterene-HCTZ 37.5-25 MG Tablet 1 tab(s) orally once a day , Discontinued ProAir Digihaler 108 (90 Base) MCG/ACT Aerosol Powder Breath Activated INHALE 2 PUFFS BY MOUTH 4 TIMES A DAY AND NEEDED , Medication List reviewed and reconciled with the patient * Allergies: A spirin: sick to stomach, Dilantin: Hallucinations - Side Effects. Objective: * Vitals: W t:223.4, Temp:97.8, BP:160/102, HR:74, Nurse:DAMIEN, Ht: 68, BMI:33.96. * Examination: G eneral Examination: General Appearance: N AD. H EENT: u nremarkable.?Oral cavity: n o lesions, mucosa moist and WNL, no erythema. N pawan: s upple, no lymphadenopathy. C hest: n ormal shape and expansion. H eart: R SR. L ungs: c lear to auscultation. A bdomen: soft and nontender. N eurologic Exam: I ntact, gait normal. S kin: n ormal, no rash. P eripheral pulses: n ormal . B ack: mild dorsal kyphosis. E xtremities: n o leg edema. Assessment: * Assessment: 1. E ssential hypertension - I10 (Primary) 2 . R enal insufficiency - N28.9? 3. H yperkalemia - E87.5 4 . C hronic GERD - K21.9 ? 5 . O ther chronic pain - G89.29 Plan: * Treatment: 2. H yperkalemia L AB: P-Basic Metabolic Panel (BMP) (Collection Date & Time - 10/25/2023 01:50 PM) s atisfactory Value Reference Range B UN 23 8-23 - mg/dL * C alcium 9.8 8.6-10.4 - mg/dL * C hloride 108 97-108 - mEq/L * C O2 21 L 22-32 - mEq/L * C reatinine 0.78 0.50-1.00 - mg/dL * G lucose 100 H 65-99 - mg/dL * P otassium 4.6 3.5-5.3 - mEq/L * S odium 141 135-145 - mEq/L * e GFR by Creatinine 86 >59 - mL/min/1.73m2 * Julia Salgado 10/26/2023 11: 13:50 AM > , Patient informed of normal results. 3.?Chronic GERD? Refill Metoclopramide HCl Tablet, 5 mg, take 1/2 tablet, three times a day as needed, 60 days, 90, Refills 2.??4.?Other chronic pain? Refill traMADol HCl Tablet, 50 MG, 1 tab(s), orally, four times a day as needed, 120, Refills 0. ? Notes: Encourage decrease in Tramadol?? * Follow Up: 6 Weeks * Images: Billing Information: * Visit Code: 70570 Office Visit, Est Pt., Level 3. * Procedure Codes: * Electronic signature of Prabhjot Diaz MD on 03/12/2025 at 10:51 AM EST Sign off status: Pending * Provider: Prabhjot Diaz M.D. Date: 0 10/25/2023 Generated for Juan Ramon de la torre/Zhen/eTransmitting on: 05/12/2024 10:51 AM EST History and Physical Notes * HPI (History of Present Illness) Category Sub-Category Detail Notes Category Not es Cardiology Short of Breath Chest Pain Palpitations Dizziness Examination Category Sub-Category Detail Notes Category Not es General Examination HEENT: unremarkable Heart: RSR Lungs: clear to auscultatio n Abdomen: soft and nontender Extremities: no leg edema General Appearance: NAD Skin: normal, no rash Neurologic Exam: Intact, gait normal Neck: supple, no lymphaden opathy Oral cavity: no lesions, mucosa m oist and WNL, no erythema Peripheral pulses: normal Back: mild dorsal kyphosis Chest: normal shape and exp ansion
--- OUTSIDE RECORDS SUMMARY | 2023-12-06 11:00 | XMS_ITS ---
Author Organization [facility] Address [address] [facility] [address] [place] [phone] Care Team Providers Care Flower Shop Manager Name Role Phone Cait Patel Primary Care Provider Doug Montalvo Unavailable [phone] Prabhjot Diaz Unavailable [phone] REASON FOR VISIT 6 week check Encounters Encounter Location Date Provider Diagnosis [facility] [address] [place] [id number] 12/06/2023 Prabhjot Diaz Plan Of Treatment No Information Progress Notes * PASHA DILLONMIGUELDOB:[birth year] (64 yo F)Acc No.[id number]:12/06/2023 Progress Notes Patient: PASHA MADSENTIE Provider: Prabhjot Diaz M.D. :1960 A ge:63 Y S ex:Female Date:12/06/2023 Address:[address] [facility] [address], [id number] Pcp:Cait Patel Subjective: * Chief Complaints: * 1 . 6 week check. * Medical History: Objective: * Vitals: Assessment: Plan: * Treatment: * Images: Billing Information: * Visit Code: * Procedure Codes: * Electronic signature of Prabhjot Diaz MD on 03/12/2025 at 10:51 AM EST Sign off status: Pending * Provider: Prabhjot Diaz M.D. Date: 0 12/06/2023 Generated for Juan Ramon de la torre/Zhen/Anuitting on: 1 05/12/2024 10:51 AM EST
--- OUTSIDE RECORDS SUMMARY | 2025-03-12 10:51 | XMS_ITS ---
Author Organization 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 Past Treatment and Therapy Plans No past plan information found. Treatment Summaries Invasive ductal carcinoma of right breast (HCC)* Cancer Treatment Plan and Summary Provided by [facility] General Information Patient name Swapna Solo Date of 1960 Age 62 y.o. Care Team Surgeon Dr. Swapna Benito Radiation Oncologist Dr. Yas Page Primary Care Physician No primary care provider on file. Cancer Diagnosis Information Diagnosis date 07/17/22 Diagnosis and Staging information Invasive Ductal Carcinoma, right breast - Clinical Stage IA (cT1c, cN0, cM0, G1, ER+, DE+, HER2-) - Pathologic Stage IA (pT1c, pN0(sn), cM0, G2, ER+, DE+, HER2-, Oncotype DX score: 5) Tumor markers Breast: Estrogen Receptor positive (100%) Progesterone Receptor positive (100%) Her-2 negative Background Information/Additional Screening Recommendations Genetics testing Negative. Tobacco use Former Smoker. Based on history, not recommended for LDCT lung cancer screening Treatment Summary Surgery 10/23/22 - Right breast segmentectomy with sentinel lymph node dissection Radiation therapy Adjuvant hypofractionated external beam radiotherapy to a total dose of 5405 cGy in 22 fractions; 4005 cGy to the right breast +1400 cGy seroma boost Endocrine Therapy Arimidex started 08/04/22 Oncology Timeline 07/15/2022 - 2022 Genetics 77 gene panel testing results were negative. 07/17/2022 Initial Diagnosis Invasive ductal carcinoma of right breast - grade 2, ER100%, DE 100%, Her2 08/04/2022 - Consult Consult with Dr Benito 08/04/22 08/04/2022 - Other Arimidex 1mg 10/23/2022 Surgery Right breast lumpectomy with grace em physician, sentinel lymph node biopsy A. [place] lymph node, right axilla, excision: - Three lymph nodes, negative for metastatic tumor (0/3). B. 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 - Ductal carcinoma in situ (DCIS), low-grade. 12/10/2022 - 01/12/2023 Radiation Tx Adjuvant hypofractionated external beam radiotherapy to a total dose of 5405 cGy in 22 fractions; 4005 cGy to the right breast +1400 cGy seroma boost. . Primary radiation oncologist,Dr. Page. Stage Clinical Stage IA (cT1c, cN0, cM0, G1, ER+, DE+, HER2-) Pathologic Stage IA (pT1c, pN0(sn), cM0, G2, ER+, DE+, HER2-, Oncotype DX score: 5) Breast Cancer Surveillance Recommendations Follow-up Recommendations Surgeon Visits Every 6 months x 2, then annually x 5 years Radiation Oncology Visits Every 6-12 months, or as directed Imaging Diagnostic mammogram annually x 5 years then screening yearly. General Health Continue follow-up with PCP and [employer] as directed Recommendations Self-care plan: What you can do to stay healthy after treatment for breast cancer Cancer treatments may increase your chance of developing other health problems years after you havecompleted treatment. The purpose of this self-care plan is to inform you about what steps you can take to maintain good health after cancer treatment, including coping with side effects of treatment,reducing the risk of cancer returning, and watching for signs of cancer returning or of a new cancer. Keep in mind that every person treated for breast cancer is different and that these recommendations are not intended to be a substitute for the advice of a doctor or other healthcare professional.Please use these recommendations to talk with your doctor and healthcare team about an appropriate follow up care plan for you. You should have a medical history and physical exam that is focused on detecting signs of cancer recurrence or of new cancers as directed by your physician. The frequency of these exams may vary depending on the stage of cancer and other risk factors. If you had breast cancer once, there is a chance that it may come back or spread to other parts of your body. This is important because most recurrent breast cancer is suspected or found by women themselves, and the majority of recurrences are detected between scheduled visits. After treatment, if you feel something isn???t right with your body,see your regular doctor, physician patient care assistant, or nurse practitioner. If what you are feeling is urgent, go to an Urgent Care or Medical Walk-in Clinic. Tell the medical provider you had cancer and show them a copy of your cancer treatment summary. Become aware of your personal breast health, this includes monthly self-breast exams. Signs and symptoms to report for potential local recurrence Change in size, shape or contour of the lumpectomy breast Nipple discharge that is clear or blood tinged New onset of breast pain A new lump Thickening or a lump in breast tissue or on the chest wall after a mastectomy Changes in the skin including dimpling, scaly appearance, rash, redness or discoloration on the breast or chest wall A lump or thickening in the underarm area Monitoring for potential regional or distant recurrence New lump or thickening in the area above the collarbone Chronic bone pain or tenderness in an area Chest pain with shortness of breath Chronic cough Persistent abdominal pain or abdominal swelling Headaches, dizziness, fainting or rapid changes in vision Increasing fatigue unrelated to treatments Inability to control urine or bowels Persistent nausea or loss of appetite Changes in weight, especially weight loss Potential late effects of treatment After surgery you may experience numbness, weakness, loss of the range of motion and/or swelling (lymphedema) in the affected arm After radiation therapy you may experience breast pain, fibrosis in the affected breast, or changesin the shape or size of the affected breast Aromatase inhibitors may cause increased risk of osteoporosis and bone fractures, hot flashes and arthralgia (pain in joints). LIFE AFTER CANCER TREATMENT Managing fatigue Fatigue is one of the most common complaints of cancer survivors. Here are some ideas to help you manage your fatigue. Plan your day. Be active at the time of day you feel most alert and energetic. Save you energy by planning how you do things. For example sit on a stool when you cook or wash dishes. Take short naps or rest breaks Try to go to sleep and wake up at the same time every day Do what you enjoy but try to focus on interests that don???t tire you out. Let others help you. Choose how to spend your energy. Think about joining a support group Emotional difficulties Cancer survivors often experience a variety of positive and negative emotions, including relief, a sense of gratitude to be alive, fear of recurrence, anger, guilt, depression, anxiety, and isolation. Cancer survivors, caregivers, family, and friends may also experience post-traumatic stress disorder, an anxiety disorder that may develop after experiencing an extremely frightening or life-threatening situation. Each person???s post-treatment experience is different. For example, some survivors struggle with negative emotional effects of the cancer while others say that they have a renewed, positive outlook on life because of the cancer. Talk with a healthcare provider about your concerns Think about joining a support group Regular physical exercise Sexuality after breast cancer Breast cancer has changed many things in your life. One of the potential changes may be in the areaof your return to normal sexual function. Breast cancer and its treatment may alter the way you feel about your body, threatening your sense of femininity. Some women may have concerns about their sexual attractiveness to their partner. These feelings are normal. It is important to include your part ner when viewing the incisional area even though it may be a difficult time. Remember, you are still the same loving person your partner selected and surgery did not change that. During treatment you may have experienced fatigue and side effects from treatments that may have affected sexual functioning. These are normal interruptions that will resolve after treatments end. Guidelines for a Healthy Lifestyle Cut down on how much alcohol you drink. Research shows that drinking alcohol increases your chancesof getting certain types of cancers. Maintain a healthy weight. Eating well and staying active can help you reach a healthy weight and stay there. Obesity is a risk factor for developing breast cancer and for breast cancer recurrence. Eat well. Healthy food choices may help reduce the risk of cancer or recurrence. Talk with your doctor or a dietitian to find out about any special dietary needs that you may have. The [employer] and the [employer] have developed similar diet and fitness guidelines that may help reduce the risk of cancer: Eat a plant-based diet that includes at least 5-9 servings of fruit and vegetables daily. Try to include beans in your diet, and eat whole grains (such as cereals, breads, and pasta) several times daily. Choose foods low in fat and salt. Exercise and stay active. Research suggests that staying active after cancer can help lower the risk of recurrence and lead to longer survival. Moderate exercise (walking, biking, swimming) for about30 minutes every - or almost every - day can: Reduce anxiety and depression Improve mood and boost self-esteem Reduce fatigue, nausea, pain, and diarrhea
--- OUTSIDE RECORDS SUMMARY | 2025-03-12 10:52 | XMS_ITS | Continuity of Care Document ---
Author Organization [facility] Address [address] [place] [address] Phone Care Team Providers Care Scaffold Worker Name Role Phone Yas Page MD Unavailable Encounters Date Type Department Care Team Description 01/31/2025 Telephone [facility] [address]. [place] [facility]17 Claudette Howell, RN Results (DEXA scan results) 01/30/2025 Results Follow-Up [facility] Dr. [place] [facility]17 Denise Apple PA-C DX BONE DENSITY AXIAL SKELETON 12/19/2024 1:26 PM EDT - 12/19/2024 11:59 PM EDT Hospital Encounter [facility] DEXA [address] [place] [address] Denise Apple PA-C Post-menopausal Discharge Disposition: Home or Self Care 12/05/[address]24 [address] [facility] [place] [address] So Galloway, Clerical Staff Appointment Needed 12/04/2024 1:55 PM EDT - 12/04/2024 1:57 PM EDT Hospital Encounter [facility] [place] [address] Denise Apple PA-C Invasive ductal carcinoma of right breast (HCC) (Primary Dx); Encounter for monitoring aromatase inhibitor therapy; Post-menopausal; Osteopenia, unspecified location Discharge Disposition: Home or Self Care 12/04/2024 1:58 PM EDT - 12/04/2024 11:59 PM EDT Hospital Encounter [facility] [place] [address] Denise Apple PA-C Invasive ductal carcinoma of right breast (HCC) Discharge Disposition: Home or Self Care 11/22/2024 Refill [facility] [place] [address] Denise Apple PA-C Medication Refill 11/22/2024 Refill [facility] [place] [address] Denise Apple PA-C Medication Refill 09/08/2024 1:53 PM EDT - 09/08/2024 11:59 PM EDT Hospital Encounter [facility] [place] [id number] Yas Page MD Invasive ductal carcinoma of right breast (HCC) (Primary Dx) Discharge Disposition: Home or Self Care 09/04/2024 Travel 08/09/2024 Travel 05/12/2024 2:58 PM EST - 05/12/2024 11:59 PM EST Hospital Encounter [place] [address] Yas Page MD Invasive ductal carcinoma of right breast (HCC) (Primary Dx) Discharge Disposition: Home or Self Care 05/09/2024 Travel 11/22/2023 [address] [facility] [place] [address] Maribel Morris, Clerical Staff Appointment Needed 11/22/2023 12:41 PM EDT Hospital Encounter [facility] [place] [address] Denise Apple PA-C Invasive ductal carcinoma of right breast (HCC) (Primary Dx); Encounter for monitoring aromatase inhibitor therapy; Osteopenia, unspecified location; Post-menopausal Discharge Disposition: Home or Self Care 11/22/2023 12:42 PM EDT - 11/22/2023 11:59 PM EDT Hospital Encounter [facility] [place] [address] Denise Apple PA-C Invasive ductal carcinoma of right breast (HCC) Discharge Disposition: Home or Self Care 11/19/2023 Refill [facility] [place] [address] Denise Apple PA-C Medication Refill 09/15/2023 Refill [facility] [place] [address] Denise Apple PA-C Medication Refill 08/17/2023 2:35 PM EDT - 08/17/2023 11:59 PM EDT Hospital Encounter [place] [address] Deana Guallpa NP Invasive ductal carcinoma of right breast (HCC) (Primary Dx); Encounter for monitoring aromatase inhibitor therapy; Encounter for follow-up examination after radiotherapy for malignant neoplasm Discharge Disposition: Home or Self Care 08/10/2023 Travel 08/03/2023 Travel 05/20/2023 Telephone [facility] [place] [address] Sandrita Rosa, RN Other (Arimidex holiday); Appointment Needed 05/20/2023 10:48 AM EST - 05/20/2023 11:59 PM EST Hospital Encounter [facility] [place] [address] Denise Apple PA-C Invasive ductal carcinoma of right breast (HCC) (Primary Dx); Encounter for monitoring aromatase inhibitor therapy; Osteopenia, unspecified location Discharge Disposition: Home or Self Care 02/09/2023 2:05 PM EDT - 02/09/2023 11:59 PM EDT Hospital Encounter [place] [address] Yas Page MD Hubbard, Danielle N, NP Invasive ductal carcinoma of right breast (HCC) (Primary Dx); Encounter for follow-up examination after radiotherapy for malignant neoplasm Discharge Disposition: Home or Self Care 02/02/2023 Travel 02/02/[address] [facility] [address] [place] [address] Kaykay Benito MD Medication Refill 01/13/2023 Telephone [place] [address] Yas Page MD 01/13/2023 Telephone [place] [address] Yas Page MD Medication Refill 01/12/2023 [address]ill [place] [address] Katie Payne, engine test cell technician Refill 01/12/2023 Orders Only [facility] Dr[address] [place] [facility]17 Yas Page MD 01/12/2023 [address]phone [place] [address] So Sierra, Clerical Staff Patient Question 01/12/2023 2:57 PM EDT - 01/12/2023 11:59 PM EDT Hospital Encounter [place] [address] Discharge Disposition: Home or Self Care 01/08/2023 Orders Only [facility] Dr[address] [place] [facility]17 Yas Page MD 01/08/2023 3:23 PM EDT - 01/08/2023 11:59 PM EDT Hospital Encounter [place] [address] Katie Carter MD Invasive ductal carcinoma of right breast (HCC) (Primary Dx) Discharge Disposition: Home or Self Care 01/07/2023 Orders Only [facility] Dr[address] [place] [facility]17 Yas Page MD 01/07/2023 12:43 PM EDT - 01/07/2023 11:59 PM EDT Hospital Encounter [place] [address] Yas Page MD Discharge Disposition: Home or Self Care 01/06/2023 Orders Only [facility] [address] [place] [address] Yas Page MD 01/06/2023 12:43 PM EDT - 01/06/2023 11:59 PM EDT Hospital Encounter [place] [place] [address] Yas Page MD Discharge Disposition: Home or Self Care 01/05/2023 Orders Only [facility] [address] [place] [address] Yas Page MD 01/05/2023 Travel 01/05/2023 12:37 PM EDT - 01/05/2023 11:59 PM EDT Hospital Encounter [facility] [address] Yas Page MD Discharge Disposition: Home or Self Care 01/04/2023 Orders Only [facility] [address] [place] [facility]17 Yas Page MD 01/04/2023 12:48 PM EDT - 01/04/2023 11:59 PM EDT Hospital Encounter [place] [address] Yas Page MD Discharge Disposition: Home or Self Care 01/01/2023 Orders Only [facility] [address] [place] [facility]17 Yas Page MD 01/01/2023 Travel 01/01/2023 12:47 PM EDT - 01/01/2023 11:59 PM EDT Hospital Encounter [place] [address] Yas Page MD Invasive ductal carcinoma of right breast (HCC) (Primary Dx) Discharge Disposition: Home or Self Care 12/31/2022 Orders Only [facility] [address] [place] [address] Yas Page MD 12/31/2022 Travel 12/31/2022 12:25 PM EDT - 12/31/2022 11:59 PM EDT Hospital Encounter [place] [place] [address] Yas Page MD Discharge Disposition: Home or Self Care 12/30/2022 Orders Only [facility] [address] [place] [address] Yas Page MD 12/30/2022 3:15 PM EDT Hospital Encounter [facility] [place] [address] Yas Page MD Discharge Disposition: Home or Self Care 12/30/2022 3:15 PM EDT - 12/30/2022 11:59 PM EDT Hospital Encounter [facility] [place] [address] Yas Page MD Discharge Disposition: Home or Self Care 12/30/2022 Travel 12/29/2022 Travel 12/28/2022 Orders Only [facility] [place] [address] Yas Page MD 12/28/2022 Travel 12/28/2022 12:46 PM EDT - 12/28/2022 11:59 PM EDT Hospital Encounter [facility] [place] [address] Yas Page MD Discharge Disposition: Home or Self Care 12/28/2022 12:46 PM EDT - 12/28/2022 11:59 PM EDT Hospital Encounter [facility] [place] [address] Yas Page MD Discharge Disposition: Home or Self Care 12/25/2022 Orders Only [facility] [address] [place] [address] Yas Page MD 12/25/2022 Travel 12/25/2022 12:56 PM EDT - 12/25/2022 11:59 PM EDT Hospital Encounter [facility] [place] [address] Yas Page MD Invasive ductal carcinoma of right breast (HCC) (Primary Dx) Discharge Disposition: Home or Self Care 12/24/2022 Orders Only [facility] [address] [place] [facility]17 Yas Pgae MD 12/24/2022 Travel 12/24/2022 12:46 PM EDT - 12/24/2022 11:59 PM EDT Hospital Encounter [facility] [place] [address] Yas Page MD Discharge Disposition: Home or Self Care 12/23/2022 Orders Only [facility] [address] [place] [address] Yas Page MD 12/23/2022 Travel 12/23/2022 12:42 PM EDT - 12/23/2022 11:59 PM EDT Hospital Encounter [facility] [place] [address] Yas Page MD Discharge Disposition: Home or Self Care 12/22/2022 Orders Only [facility] [place] [address] Yas Page MD 12/22/2022 Travel 12/22/2022 12:47 PM EDT - 12/22/2022 11:59 PM EDT Hospital Encounter [facility] [place] [address] Yas Page MD Discharge Disposition: Home or Self Care 12/21/2022 Orders Only [facility] [place] [address] Yas Page MD 12/21/2022 Travel 12/21/2022 1:48 PM EDT - 12/21/2022 11:59 PM EDT Hospital Encounter [facility] [place] [address] Yas Page MD Discharge Disposition: Home or Self Care 12/18/2022 Orders Only [facility] [place] [address] Yas Page MD 12/18/2022 Travel 12/18/2022 3:22 PM EDT - 12/18/2022 11:59 PM EDT Hospital Encounter [facility] [place] [address] Yas Page MD Invasive ductal carcinoma of right breast (HCC) (Primary Dx) Discharge Disposition: Home or Self Care 12/17/2022 Orders Only [facility] [address] [place] [facility]17 Yas Page MD 12/17/2022 Travel 12/17/2022 1:53 PM EDT - 12/17/2022 11:59 PM EDT Hospital Encounter [facility] [place] [address] Yas Page MD Discharge Disposition: Home or Self Care 12/16/2022 Orders Only [facility] [address] [place] [facility]17 Yas Page MD 12/16/2022 Travel 12/16/2022 3:30 PM EDT - 12/16/2022 11:59 PM EDT Hospital Encounter [facility] [place] [id number] Discharge Disposition: Home or Self Care 12/15/2022 Orders Only [facility] [place] [address] Yas Page MD 12/15/2022 Travel 12/15/2022 3:41 PM EDT - 12/15/2022 11:59 PM EDT Hospital Encounter [facility] [place] [address] Discharge Disposition: Home or Self Care 12/14/2022 Orders Only [facility] [place] [address] Yas Page MD 12/14/2022 Travel 12/14/2022 3:21 PM EDT - 12/14/2022 11:59 PM EDT Hospital Encounter [place] [address] Yas Page MD Discharge Disposition: Home or Self Care 12/11/2022 Orders Only [facility] [place] [address] Yas Page MD 12/11/2022 Travel 12/11/2022 3:32 PM EDT - 12/11/2022 11:59 PM EDT Hospital Encounter [place] [address] Yas Page MD Invasive ductal carcinoma of right breast (HCC) (Primary Dx) Discharge Disposition: Home or Self Care 12/10/2022 Orders Only [facility] [place] [address] Yas Page MD 12/10/2022 Travel 12/10/2022 2:34 PM EDT - 12/10/2022 11:59 PM EDT Hospital Encounter [place] [address] Discharge Disposition: Home or Self Care 12/09/2022 Travel 12/09/2022 10:49 AM EDT - 12/09/2022 11:59 PM EDT Hospital Encounter [place] [address] Yas Page MD Discharge Disposition: Home or Self Care 12/08/2022 12:00 PM EDT - 12/08/2022 11:59 PM EDT Hospital Encounter [place] [address] Yas Page MD Discharge Disposition: Home or Self Care 12/02/2022 Travel 12/01/2022 10:09 AM EDT - 12/01/2022 11:59 PM EDT [facility] [place] [address] Yas Page MD Invasive ductal carcinoma of right breast (HCC) Discharge Disposition: Home or Self Care 12/01/2022 Travel 12/01/2022 9:56 AM EDT - 12/01/2022 10:08 AM EDT Hospital Encounter [place] [address] Yas Page MD Invasive ductal carcinoma of right breast (HCC) (Primary Dx) Discharge Disposition: Home or Self Care 11/24/2022 Travel 11/24/2022 9:11 AM EDT - 11/24/2022 11:59 PM EDT Hospital Encounter [facility] [place] [id number] Yas Page MD Invasive ductal carcinoma of right breast (HCC) (Primary Dx) Discharge Disposition: Home or Self Care 11/23/2022 Travel 11/19/[address]22 [address] [facility] [place] [address] Shona Ayala MA Appointment Needed 11/19/2022 Travel 11/18/2022 Travel 11/18/2022 3:29 PM EDT - 11/18/2022 11:59 PM EDT Hospital Encounter [facility] [place] [address] Kaykay Benito MD Invasive ductal carcinoma of right breast (HCC) (Primary Dx) Discharge Disposition: Home or Self Care 11/06/2022 Travel 11/06/2022 1:49 PM EDT - 11/06/2022 11:59 PM EDT Hospital Encounter [facility] [place] [address] Yulissa Valenzuela NP Postop check (Primary Dx) Discharge Disposition: Home or Self Care 10/29/2022 Telephone [facility] [place] [address] Gabi Genao RN Advice Only (Pain meds after surgery) 10/28/2022 Telephone [facility] [place] [address] Kaykay Benito MD Results (Pathology results) 10/23/2022 Travel 10/23/2022 11:40 AM EDT - 10/23/2022 1:20 PM EDT Surgery [facility] [place] [address] Kaykay Benito MD BREAST LUMPECTOMY/ SEGMENTECTOMY/ AXILLARY SENTINEL NODE BIOPSY (COVERS MAMMOGRAM GUIDED/NEEDLE PLACEMENT OR PRIYANKA ROUTE CONTRACTOR) 10/23/2022 11:03 AM EDT [facility] [place] [address] Dion Colon MD Collins, Angela, APRN 10/23/2022 9:51 AM EDT - 10/23/2022 3:15 PM EDT Hospital Encounter [facility] SAME DAY SURG[facility] [place] [address] Kaykay Benito MD Preop testing (Primary Dx); Invasive ductal carcinoma of right breast (HCC) Discharge Disposition: Home or Self Care 10/19/2022 12:45 PM EDT - 10/19/2022 11:59 PM EDT Hospital Encounter [facility] [place] [address] Preop testing; Invasive ductal carcinoma of right breast (HCC) Discharge Disposition: Home or Self Care 10/19/2022 Travel 10/19/2022 12:30 PM EDT - 10/19/2022 12:44 PM EDT [facility] [place] [address] Preop testing; Primary hypertension Discharge Disposition: Home or Self Care 10/16/2022 Orders Only [facility] Anest[facility] [place] [address] Chilango Szymanski APRN Preop testing (Primary Dx); Primary hypertension 10/16/2022 Travel 10/15/2022 8:18 AM EDT - 10/15/2022 11:59 PM EDT Hospital Encounter [facility] [place] [address] Kaykay Benito MD Invasive ductal carcinoma of right breast (HCC) Discharge Disposition: Home or Self Care 10/15/2022 Travel 10/15/2022 8:08 AM EDT - 10/15/2022 8:17 AM EDT Hospital Encounter [facility] [place] [address] Kaykay Benito MD Invasive ductal carcinoma of right breast (HCC) Discharge Disposition: Home or Self Care 10/01/2022 Telephone [facility] [address] [facility] [address] [place] [address] Elfego, Nancie, RMA Procedure 10/01/2022 Telephone [facility] S[facility] [address] [facility] [address] [place] [phone] Abigail Jacobo, Clerical Staff Surgery 10/01/2022 Orders Only [facility] [address] [facility] [address] [place] [phone] Abigail Jacobo, Clerical Staff Invasive ductal carcinoma of right breast (HCC) (Primary Dx) 09/30/2022 Travel 09/30/2022 8:26 AM EDT - 09/30/2022 9:07 AM EDT Hospital Encounter [facility] DEXA [address] [place] [address] Kaykay Benito MD Post-menopausal Discharge Disposition: Home or Self Care 09/30/2022 9:08 AM EDT - 09/30/2022 11:59 PM EDT Hospital Encounter [facility] [place] [address] Kaykay Benito MD Malignant neoplasm of right female breast, unspecified estrogen receptor status, unspecified site of breast (HCC) (Primary Dx) Discharge Disposition: Home or Self Care 08/17/2022 7:40 AM EDT Tumor [facility] [place] [address] 08/10/[address]22 [address] [facility] [place] [address] Rhiannon Armstrong Appointment Needed 2022 Telephone [facility] [place] [address] Mirella Slade Orders (ONCOTYPE) 2022 Telephone [facility] [address] [place] [address] Marti Veras CGC Results ([facility] ) 08/04/2022 Telephone [facility] [place] [address] Chilango Coley, RN 08/04/2022 Orders Only [facility] [place] [address] Mirella Slade Malignant neoplasm of right female breast, unspecified estrogen receptor status, unspecified site of breast (HCC) (Primary Dx) 08/04/2022 12:00 PM EDT - 08/04/2022 11:59 PM EDT Hospital Encounter [facility] [place] [phone] Invasive ductal carcinoma of right breast (HCC) Discharge Disposition: Home or Self Care 08/04/2022 Travel 08/04/2022 10:17 AM EDT - 08/04/2022 11:59 AM EDT Hospital Encounter [facility] [place] [address] Kaykay Benito MD Invasive ductal carcinoma of right breast (HCC) (Primary Dx); Post-menopausal Discharge Disposition: Home or Self Care 07/30/2022 Telephone [facility] [place] [address] Chilango Coley, RN Results 07/15/2022 11:00 AM EST - 07/15/2022 11:59 PM EST Hospital Encounter [facility] [address] [place] [address] Marti Veras CGC Encounter for nonprocreative genetic counseling (Primary Dx) Discharge Disposition: Home or Self Care 07/14/2022 Lab Requisition [facility] [place] [address] Kaykay Benito MD 07/13/2022 Telephone [facility] [place] [address] Rhiannon Armstrong Appointment Needed (OUTSIDE SLIDES) 07/03/2022 Travel 07/03/2022 9:43 AM EST - 07/03/2022 11:59 PM EST Hospital Encounter [facility] [place] [address] Dion Kenney MD Malignant neoplasm of upper-outer quadrant of right breast in female, estrogen receptor positive (HCC) Discharge Disposition: Home or Self Care 06/23/2022 Telephone [facility] [address] [place] [address] Heather Luque Clerical Staff Abnormal Radiology 06/18/2022 Travel 06/18/2022 7:47 AM EST - 06/18/2022 11:59 PM [facility] Hospital Encounter [facility] [address] [place] [id number] Dion Kenney MD Malignant neoplasm of right female breast, unspecified estrogen receptor status, unspecified site of breast (HCC) Discharge Disposition: Home or Self Care 07/31/2019 Travel 07/31/2019 8:10 AM EDT - 07/31/2019 11:59 PM EDT Hospital Encounter [facility] [place] [address] 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 [address] Cristian Villegas MD Venous ulcer of right leg (HCC) (Primary Dx) Discharge Disposition: Home or Self Care 07/19/2019 Travel 07/19/2019 12:19 PM EDT - 07/19/2019 11:59 PM EDT Hospital Encounter [facility] [place] [address] [address] 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 [address] Marv Harp MD Right shoulder strain Discharge Disposition: Home or Self Care 01/09/2011 7:17 PM EDT - 01/09/2011 8:19 PM EDT Emergency [facility] [place] [address] Richard Cherry III, MD Chest wall contusion Discharge Disposition: Home or Self Care 01/12/2010 7:50 PM EDT - 01/12/2010 9:52 PM EDT Emergency [facility] [address] [place] [address] Thong Rome MD Contusion, thigh; Contusion, knee Discharge Disposition: Home or Self Care 12/29/2004 Hospital Encounter [facility] Generic, Historical Provider 10/30/2003 2:50 AM EDT - 10/30/2003 6:45 AM EDT Emergency [facility] Generic, Historical Provider 12/03/2002 7:40 PM EDT - 12/03/2002 8:25 PM EDT Emergency [facility] Generic, Historical Provider 09/02/2002 9:00 PM EDT - 09/02/2002 9:40 PM EDT Emergency [facility] Generic, Historical Provider Allergies Active Allergy Reactions Criticality Noted Date Comments Aspirin 01/12/2010 Medications metoprolol (LOPRESSOR) 50 mg Oral Tablet Take 50 mg by mouth 2 times daily. Active divalproex (DEPAKOTE) 250 mg Oral Tablet, Delayed Release (E.C.) Take 250 mg by mouth 2 times daily. 2 tabs in am and 1 tab in evening Active esomeprazole (NEXIUM) 40 mg Oral Capsule, Delayed Release(E.C.) Take by mouth daily. Active allopurinoL (ZYLOPRIM) 300 mg Oral Tablet Take by mouth daily. Active traMADoL (ULTRAM) 50 mg Oral Tablet Take by mouth 3 times daily. Active mometasone (ELOCON) 0.1 % Top CreamIndication s:Invasive ductal carcinoma of right breast (HCC) Apply topically daily. 45 g 1 3 Active Additional Information Patient not taking.Reason: Therapy Completed, Reported on 09/08/2024 ondansetron (ZOFRAN-ODT) 4 mg Oral Tablet, Rapid Dissolve Take 1 Tablet by mouth every 8 hours as needed for Nausea. 30 Tablet 3 Active Additional Information Patient not taking.Reason: Therapy Completed, Reported on 09/08/2024 lidocaine (XYLOCAINE) 2 % MM Solution Mix with Aquaphor and apply to breast as needed for pain. 30 mL 02/09/2023 3:08 PM EDT 3 Active oxyCODONE (ROXICODONE) 5 mg Oral Tablet Take 1 Tablet by mouth every 4 hours as needed for Acute Pain (R52). 30 Tablet 3 Active Additional Information Patient not taking.Reason: Therapy Completed, Reported on 09/08/2024 telmisartan (MICARDIS) 20 mg Oral Tablet Take 20 mg by mouth daily. Active pregabalin (LYRICA) 75 mg Oral Capsule Take 75 mg by mouth nightly. Active letrozole (FEMARA) 2.5 mg Oral Tablet Take 1 Tablet by mouth daily. 90 Tablet 3 5 Active Active Problems Problem Noted Date Diagnosed Date Invasive ductal carcinoma of right breast 2022 Cancer Staging:Clinical stage from 08/04/2022:Stage IA(cT1c, cN0, cM0, G1, ER+, CA+, HER2-) - Signed by Kaykay Benito MD on 08/07/2022 Pathologic stage from 10/23/2022:Stage IA(pT1c, pN0(sn), cM0, G2, ER+, CA+, HER2- , Oncotype DX score: 5) - Signed by Yas Page MD on 11/23/2022 Venous ulcer of right leg 07/19/2019 Non-pressure chronic ulcer o f other part of right lower leg with fat layer exposed 07/19/2019 Family History Medical History Relation Name Comments Heart Disease Father Breast Cancer Maternal Aunt Breast Cancer Maternal Grandmother Cancer Mother Mult Sclerosis Mother Breast Cancer Paternal Aunt 1 Breast Cancer Paternal Aunt 2 Unknown Sister Vision Loss Sister ng disease Relation Name Status Comments Father Maternal Aunt Maternal Grandmother Mother Paternal Aunt 1 Paternal Aunt 2 Alive Sister Social History Smoking Status as of 03/12/2025 Tobacco Use Types Packs/Day Years Used Date Smoking Tobacco: Never Assessed PHQ-2 Answer Date Recorded PHQ-2 Total Score 0 08/17/2023 Sex and Gender Information Value Date Recorded Sex Assigned at Not on file Legal Sex Female 9:02 PM EDT Gender Identity Not on file Sexual Orientation Not on file Last Filed Vital Signs Vital Sign Reading Time Taken Comments Blood Pressure 141/103 09/08/2024 2:03 PM EDT Pulse 145 09/08/2024 2:03 PM EDT Temperature 36.2 C (97.2 F) 12/04/2024 2:43 PM EDT Respiratory Rate 18 09/08/2024 2:03 PM EDT Oxygen Saturation 99% 09/08/2024 2:03 PM EDT Inhaled Oxygen Concentration - - Weight 93 kg (205 lb 1.6 oz) 12/04/2024 2:43 PM EDT Height 175.3 cm (5' 9 ) 12/04/2024 2:15 PM EDT Body Mass Index 30.29 12/04/2024 2:15 PM EDT Plan of Treatment Upcoming Encounters Date Type Department Care Team (Late st Contact Info) Description 03/13/2025 1:45 PM EST Appointment [facility] [place] [address] Deana Guallpa, EULA [address] [place] [address] [place] [address] 12/04/2025 12:30 PM EDT Appointment [facility] [place] [address] Denise Apple PA-C [address] [facility] [address] [place] [address] 12/04/2025 1:00 PM EDT Appointment [facility] [address] [place], [place] [address] Denise Apple PA-C [address] [facility] [place] [address] Procedures Procedure Name Priority Date/Time Associated Diagnosis Comments DX BONE DENSITY AXIAL SKELETON Routine 12/19/2024 2:05 PM EDT Post-menopausal MM MAMMO DIGITAL HAMMAD DIAGN BILAT Routine 12/04/2024 2:30 PM EDT Invasive ductal carcinoma of right breast (HCC) MM MAMMO DIGITAL HAMMAD DIAGN BILAT Routine 11/22/2023 1:16 PM EDT Invasive ductal carcinoma of right breast (HCC) RADIATION TREATMENT SUMMARY Routine 01/12/2023 3:31 PM EDT RADIATION TREATMENT SUMMARY Routine 01/08/2023 3:45 PM EDT RADIATION TREATMENT SUMMARY Routine 01/07/2023 1:12 PM EDT RADIATION TREATMENT SUMMARY Routine 01/06/2023 1:12 PM EDT RADIATION TREATMENT SUMMARY Routine 01/05/2023 1:15 PM EDT RADIATION TREATMENT SUMMARY Routine 01/04/2023 1:14 PM EDT RADIATION TREATMENT SUMMARY Routine 01/01/2023 1:14 PM EDT RADIATION TREATMENT SUMMARY Routine 12/31/2022 1:11 PM EDT RADIATION TREATMENT SUMMARY Routine 12/30/2022 3:53 PM EDT RADIATION TREATMENT SUMMARY Routine 12/28/2022 1:14 PM EDT RADIATION TREATMENT SUMMARY Routine 12/25/2022 1:19 PM EDT RADIATION TREATMENT SUMMARY Routine 12/24/2022 1:23 PM EDT RADIATION TREATMENT SUMMARY Routine 12/23/2022 1:36 PM EDT RADIATION TREATMENT SUMMARY Routine 12/22/2022 1:19 PM EDT RADIATION TREATMENT SUMMARY Routine 12/21/2022 2:19 PM EDT RADIATION TREATMENT SUMMARY Routine 12/18/2022 3:43 PM EDT RADIATION TREATMENT SUMMARY Routine 12/17/2022 2:18 PM EDT RADIATION TREATMENT SUMMARY Routine 12/16/2022 4:16 PM EDT RADIATION TREATMENT SUMMARY Routine 12/15/2022 3:55 PM EDT RADIATION TREATMENT SUMMARY Routine 12/14/2022 4:26 PM EDT RADIATION TREATMENT SUMMARY Routine 12/11/2022 4:05 PM EDT RADIATION TREATMENT SUMMARY Routine 12/10/2022 3:[address] CHEST RADIATION THERAPY PLANNING WO CONTRAST Routine 12/01/2022 11:06 AM EDT Invasive ductal carcinoma of right breast (HCC) PATHOLOGY TISSUE REQUEST Routine 10/23/2022 12:00 PM EDT Invasive ductal carcinoma of right breast (HCC) INTRAOP AIRWAY PLACEMENT Routine 10/23/2022 11:10 AM EDT MM EDG TRIDENT SPECIMEN IMAGING Routine 10/23/2022 11:01 AM EDT BREAST LUMPECTOMY/ SEGMENTECTOMY/ AXILLARY SENTINEL NODE BIOPSY (COVERS MAMMOGRAM GUIDED/NEEDLE PLACEMENT OR PRIYANKA ROUTE CONTRACTOR) 10/23/2022 11:00 AM EDT Invasive ductal carcinoma of right breast (HCC) Special Needs Priyanka baker apprentice 10/15/22 @830am BASIC METABOLIC PANEL Routine 10/19/2022 12:57 PM EDT Preop testing Invasive ductal carcinoma of right breast (HCC) EK EKG 12 LEAD Routine 10/19/2022 12:38 PM EDT Preop testing Primary hypertension MM POST PROCEDURE FILM DIGITAL RIGHT Routine 10/15/2022 8:55 AM EDT Invasive ductal carcinoma of right breast (HCC) MM US RADAR REFLECTOR LOCAL RIGHT Routine 10/15/2022 8:47 AM EDT Invasive ductal carcinoma of right breast (HCC) DX BONE DENSITY AXIAL SKELETON Routine 09/30/2022 8:55 AM EDT Post-menopausal GENETIC SCANNING 2022 2:56 PM EDT PATHOLOGY TISSUE ADD-ON ORDER Routine 08/04/2022 4:37 PM EDT Malignant neoplasm of right female breast, unspecified estrogen receptor status, unspecified site of breast (HCC) HEPATIC FUNCTION PANEL Routine 08/04/2022 12:05 PM EDT Invasive ductal carcinoma of right breast (HCC) CHG CONSLTJ&REPRT REFERRED SLIDES PREPARED ELSEWHERE Routine 07/14/2022 12:02 PM EST MM US BREAST LIMITED RIGHT Routine 07/03/2022 10:06 AM EST Malignant neoplasm of upper-outer quadrant of right breast in female, estrogen receptor positive (HCC) MRI BREAST BILATERAL W WO CONTRAST W CAD Routine 06/18/2022 9:00 AM EST Malignant neoplasm of right female breast, unspecified estrogen receptor status, unspecified site of breast (HCC) MRI SHOULDER RIGHT WO CONTRAST Routine 01/21/2011 8:05 PM EDT Shoulder pain, right XR SHOULDER RIGHT 4 VIEWS MARGARITA 01/16/2011 8:49 PM EDT XR CHEST PA AND LATERAL MARGARITA 01/09/2011 7:51 PM EDT XR KNEE LEFT AP LATERAL INTERNAL AND EXTERNAL OBLIQUES MARGARITA 01/12/2010 9:12 PM EDT XR FEMUR LEFT AP AND LATERAL MARGARITA 01/12/2010 8:21 PM EDT DIAG FOOT MIN 3 VIEWS RT Routine 12/29/2004 12:00 AM EDT Results * DX BONE DENSITY AXIAL SKELETON (12/19/2024 2:05 PM EDT) Only the most recent of2 resultswithin the time period is included. Anatomical Region Laterality Modality Dexa Scan 12/19/2024 Impressions 12/19/2024 3:55 PM EDT Indication: The patient is a post-menopausal female under age 65 with clinical risk factors for an osteoporotic fracture that requires a bone density assessment. Study was performed on onlinetours 5. Bone Density: Region BMD T-score Z-score AP Spine (L1-L4) 0.977 -0.6 0.9 Femoral Neck (Right) 0.621 -2.1 -0.7 Total Hip (Right) 0.777 -1.4 -0.3 1/3 Radius (Left) 0.674 -0.3 1.1 World Health Organization criteria for BMD interpretation classify patients as: Normal (T-score at or above -1.0), Low Bone Density (T-score between -1.0 and -2.5), or Osteoporotic (T-score at or below -2.5). T Scores are reported in Postmenopausal women and in men age 50 and older. Z-scores are reported in females prior to menopause and in males younger than age 50. 10-year Fracture Risk(1): Major Osteoporotic Fracture 17% Hip Fracture 2.3% Reported Risk Factors: [place] (), Neck BMD=0.621, BMI=30.4, previous fracture (1) FRAX(R) Version 3.08. Fracture probability calculated for an untreated patient. Fracture probability may be lower if the patient has received treatment. Previous Exams: Region Date Age BMD T-score BMD Change AP Spine(L1-L4) 12/19/2024 64 0.977 -0.6 -1.4% 09/30/2022 62 0.991 -0.5 Total Hip(Right) 12/19/2024 64 0.777 -1.4 -4.2%* 09/30/2022 62 0.811 -1.1 1/3 Forearm(Left) 12/19/2024 64 0.674 -0.3 -5.6%* 09/30/2022 62 0.713 0.3 *Denotes significance at 95% confidence level, LSC for AP Spine = 0.032g/cm2, LSC for Total Hip = 0.024 g/cm2, LSC for Distal 1/3 Radius = 0.026 g/cm2, site specific LSC for AP Spine = 0.032 g/cm2, site specific LSC for Total Hip = 0.022 g/cm2, site specific LSC for 1/3 Forearm = 0.026 g/cm2 BMD is shown in g/cm2 and BMD Change indicates change vs previous BMD Clinical Information Provided by Patient: Has had a low trauma fracture Has used or is currently using the following medications: Aromatase Inhibitors, Diuretic, Anticonvulsant Has had or currently has the following medical conditions: Breast Cancer, Back pain, Hip pain, rt ankle, rt foot Patient maximum height was 69.0 Menopause Age: 54 Patient is Postmenopausal Interpretation: Bone mineral density is in the low bone density range. A minimum of two years may be required between bone density studies due to inherent testing precision limitations. Intervals between BMD testing should be determined according to each patient's clinical status: typically one year after initiation or change of therapy is appropriate, with longer intervals once therapeutic effect is established. The spine bone mineral density is not significantly changed since the last exam. The right hip bone mineral density is significantly decreased since the last exam. Although not approved for monitoring therapy the forearm bone mineral density is significantly decreased since the last exam. Reported by: Rosio Blevins PA-C, CCD on 12/19/2024 2:27:00 PM. Denise Apple PA-C IMG DEXA ORDERABLES Final Res ult * MM MAMMO DIGITAL HAMMAD DIAGN BILAT (12/04/2024 2:30 PM EDT) Only the most recent of2 resultswithin the time period is included. Anatomical Region Laterality Modality Breast Bilateral Mammography 12/04/2024 2:30 PM EDT Impressions 12/04/2024 2:37 PM EDT Benign ([id number]) ASSESSMENT TEXT: No mammographic evidence of malignancy. RECOMMENDATION: Diagnostic Mammogram in 1 Year Bilateral . . COMMENTS: Return for evaluation with any concerning changes. The findings and recommendations were discussed with the patient following the examination. DISCLAIMER *The patient was notified by MyChart or mail of the results for this examination. *The patient's information was entered into a reminder system with a target due date for the next breast imaging, in accordance with the [employer] and the Society of Breast Imaging recommendations. *Breast Imaging has a false negative rate of 15%. *Any patient with a palpable abnormality, unexplained by breast imaging, should be managed on a clinical basis by the attending physician. Narrative 12/04/2024 2:37 PM EDT EXAM: MM MAMMO DIGITAL HAMMAD DIAGN BILAT EXAM DATE: 12/04/2024 2:30 PM INDICATION: C50.911-Malignant neoplasm of unspecified site of right female breast (HCC)-ICD-10-CM COMPARISON STUDIES: Compared with prior studies the most recent being 11/22/2023 MM MAMMO DIGITAL HAMMAD DIAGN BILAT at [facility] TISSUE DENSITY: The breasts are heterogeneously dense, which may obscure small masses. FINDINGS: Stable posttraumatic changes right breast. No suspicious mammographic findings. Procedure Note Carlos A Dave MD - 12/04/2024 EXAM: MM MAMMO DIGITAL HAMMAD DIAGN BILAT EXAM DATE: 12/04/2024 2:30 PM INDICATION: C50.911-Malignant neoplasm of unspecified site of rightfemale breast (HCC)-ICD-10-CM COMPARISON STUDIES: Compared with prior studies the most recent being 11/22/2023 MM MAMMO DIGITAL HAMMAD DIAGN BILAT at [facility] TISSUE DENSITY: The breasts are heterogeneously dense, which may obscuresmall masses. FINDINGS: Stable posttraumatic changes right breast. No suspicious mammographicfindings. IMPRESSION: Benign ([id number]) ASSESSMENT TEXT: No mammographic evidence of malignancy. RECOMMENDATION: Diagnostic Mammogram in 1 Year Bilateral . . COMMENTS: Return for evaluation with any concerning changes. The findingsand recommendations were discussed with the patient following theexamination. DISCLAIMER *The patient was notified by MyChart or mail of the results for this examination. *The patient's information was entered into a reminder system with atarget due date for the next breast imaging, in accordance with the [employer] and the Society of Breast Imaging recommendations. *Breast Imaging has a false negative rate of 15%. *Any patient with a palpable abnormality, unexplained by breast imaging,should be managed on a clinical basis by the attending physician. Denise Apple PA-C IMKacie MAMMOGRAPHY ORDERABLES Fi nal Result * RADIATION TREATMENT SUMMARY (01/12/2023 3:31 PM EDT) Course ID C1 ARIA Course Start Date 12/01/2022 11:16:33 AM [place] Primary Oncologist Yas Page Session Number 22 ARIA Treatment Date_Time 01/12/2023 3:31:06 PM ARIA Treatment Elapsed Days 33 ARIA Fractions Treated 22 ARIA Reference Point ID Boost CalcPt ARIA Dosage Given to Date in Gy 14.79200876 ARIA Session Dosage Given in Gy 2.25933613 ARIA Reference Point ID calc bst ARIA Dosage Given to Date in Gy 14.9668220 ARIA Session Dosage Given in Gy 2.7771510 ARIA Reference Point ID PTV seroma RP ARIA Dosage Given to Date in Gy 14 ARIA Session Dosage Given in Gy 2 ARIA Reference Point ID RtBrst prn ISO ARIA Dosage Given to Date in Gy 51.79901550 ARIA Session Dosage Given in Gy 1.43099551 ARIA Plan ID Rt BOOST Prn ARIA Plan Name Rt BOOST Prn ARIA Fractions Treated to Date 7 ARIA Prescribed Dose Per Fraction in Gy 2 ARIA Prescribed Dose in cGY 1,400 ARIA Site Being Treated Breast, Right-cT1N0 Rt Brst Boost ARIA Site Being Treated Breast, Right-cT1N0 ER+ Rt Breast IDC ARIA 01/12/2023 3:31 PM EDT us Yas Page MD RADIATION ONCOLOGY ORDERABLES Fi nal Result [facility] Medical [facility] [place] [address] * RADIATION TREATMENT SUMMARY (01/08/2023 3:45 PM EDT) Course ID C1 ARIA Course Start Date 12/01/2022 11:16:33 AM [place] Primary Oncologist Yas Page ARIA Session Number 21 ARIA Treatment Date_Time 01/08/2023 3:45:34 PM ARIA Treatment Elapsed Days 29 ARIA Fractions Treated 21 ARIA Reference Point ID Boost CalcPt ARIA Dosage Given to Date in Gy 12.04406929 ARIA Session Dosage Given in Gy 2.44745314 ARIA Reference Point ID calc bst ARIA Dosage Given to Date in Gy 12.9012070 ARIA Session Dosage Given in Gy 2.7551503 ARIA Reference Point ID PTV seroma RP ARIA Dosage Given to Date in Gy 12 ARIA Session Dosage Given in Gy 2 ARIA Reference Point ID RtBrst prn ISO ARIA Dosage Given to Date in Gy 49.4841457 ARIA Session Dosage Given in Gy 1.60878935 ARIA Plan ID Rt BOOST Prn ARIA Plan Name Rt BOOST Prn ARIA Fractions Treated to Date 6 ARIA Prescribed Dose Per Fraction in Gy 2 ARIA Prescribed Dose in cGY 1,400 ARIA Site Being Treated Breast, Right-cT1N0 Rt Brst Boost ARIA Site Being Treated Breast, Right-cT1N0 ER+ Rt Breast IDC ARIA 01/08/2023 3:45 PM EDT us Yas Page MD RADIATION ONCOLOGY ORDERABLES Fi nal Result [facility] [place] [address] * RADIATION TREATMENT SUMMARY (01/07/2023 1:12 PM EDT) Course ID C1 ARIA Course Start Date 12/01/2022 11:16:33 AM ARIA Primary Oncologist Yas Page ARIA Session Number 20 ARIA Treatment Date_Time 01/07/2023 1:12:39 PM ARIA Treatment Elapsed Days 28 ARIA Fractions Treated 20 ARIA Reference Point ID Boost CalcPt ARIA Dosage Given to Date in Gy 10.58093890 ARIA Session Dosage Given in Gy 2.31992664 ARIA Reference Point ID calc bst ARIA Dosage Given to Date in Gy 10.124862 ARIA Session Dosage Given in Gy 2.1392496 ARIA Reference Point ID PTV seroma RP ARIA Dosage Given to Date in Gy 10 ARIA Session Dosage Given in Gy 2 ARIA Reference Point ID RtBrst prn ISO ARIA Dosage Given to Date in Gy 48.44832181 ARIA Session Dosage Given in Gy 1.11354975 ARIA Plan ID Rt BOOST Prn ARIA Plan Name Rt BOOST Prn ARIA Fractions Treated to Date 5 ARIA Prescribed Dose Per Fraction in Gy 2 ARIA Prescribed Dose in cGY 1,400 ARIA Site Being Treated Breast, Right-cT1N0 Rt Brst Boost ARIA Site Being Treated Breast, Right-cT1N0 ER+ Rt Breast IDC ARIA 01/07/2023 1:12 PM EDT us Yas Page MD RADIATION ONCOLOGY ORDERABLES Fi nal Result [facility] [place] [address] * RADIATION TREATMENT SUMMARY (01/06/2023 1:12 PM EDT) Course ID C1 ARIA Course Start Date 12/01/2022 11:16:33 AM ARIA Primary Oncologist Yas Page ARIA Session Number 19 ARIA Treatment Date_Time 01/06/2023 1:12:28 PM ARIA Treatment Elapsed Days 27 ARIA Fractions Treated 19 ARIA Reference Point ID Boost CalcPt ARIA Dosage Given to Date in Gy 8.22372154 ARIA Session Dosage Given in Gy 2.49361905 ARIA Reference Point ID calc bst ARIA Dosage Given to Date in Gy 8.4226941 ARIA Session Dosage Given in Gy 2.4023775 ARIA Reference Point ID PTV seroma RP ARIA Dosage Given to Date in Gy 8 ARIA Session Dosage Given in Gy 2 ARIA Reference Point ID RtBrst prn ISO ARIA Dosage Given to Date in Gy 46.4821166 ARIA Session Dosage Given in Gy 1.95272899 ARIA Plan ID Rt BOOST Prn ARIA Plan Name Rt BOOST Prn ARIA Fractions Treated to Date 4 ARIA Prescribed Dose Per Fraction in Gy 2 ARIA Prescribed Dose in cGY 1,400 ARIA Site Being Treated Breast, Right-cT1N0 Rt Brst Boost ARIA Site Being Treated Breast, Right-cT1N0 ER+ Rt Breast IDC ARIA 01/06/2023 1:12 PM EDT us Yas Page MD RADIATION ONCOLOGY ORDERABLES Fi nal Result [facility] [place] [address] * RADIATION TREATMENT SUMMARY (01/05/2023 1:15 PM EDT) Course ID C1 ARIA Course Start Date 12/01/2022 11:16:33 AM [place] Primary Oncologist Yas Page Session Number 18 ARIA Treatment Date_Time 01/05/2023 1:15:52 PM ARIA Treatment Elapsed Days 26 ARIA Fractions Treated 18 ARIA Reference Point ID Boost CalcPt ARIA Dosage Given to Date in Gy 6.67486510 ARIA Session Dosage Given in Gy 2.13413278 ARIA Reference Point ID calc bst ARIA Dosage Given to Date in Gy 6.7895388 ARIA Session Dosage Given in Gy 2.0944765 ARIA Reference Point ID PTV seroma RP ARIA Dosage Given to Date in Gy 6 ARIA Session Dosage Given in Gy 2 ARIA Reference Point ID RtBrst prn ISO ARIA Dosage Given to Date in Gy 45.96182021 ARIA Session Dosage Given in Gy 1.88446814 ARIA Plan ID Rt BOOST Prn ARIA Plan Name Rt BOOST Prn ARIA Fractions Treated to Date 3 ARIA Prescribed Dose Per Fraction in Gy 2 ARIA Prescribed Dose in cGY 1,400 ARIA Site Being Treated Breast, Right-cT1N0 Rt Brst Boost ARIA Site Being Treated Breast, Right-cT1N0 ER+ Rt Breast IDC ARIA 01/05/2023 1:15 PM EDT us Yas Page MD RADIATION ONCOLOGY ORDERABLES nal Result [facility] [address] [facility] [place] [address] * RADIATION TREATMENT SUMMARY (01/04/2023 1:14 PM EDT) Course ID C1 ARIA Course Start Date 12/01/2022 11:16:33 AM [place] Primary Oncologist Yas Page ARICharles Session Number 17 ARIA Treatment Date_Time 01/04/2023 1:14:02 PM ARIA Treatment Elapsed Days 25 ARIA Fractions Treated 17 ARIA Reference Point ID Boost CalcPt ARIA Dosage Given to Date in Gy 4.29047449 ARIA Session Dosage Given in Gy 2.29403263 ARIA Reference Point ID calc bst ARIA Dosage Given to Date in Gy 4.3881771 ARIA Session Dosage Given in Gy 2.9216328 ARIA Reference Point ID PTV seroma RP ARIA Dosage Given to Date in Gy 4 ARIA Session Dosage Given in Gy 2 ARIA Reference Point ID RtBrst prn ISO ARIA Dosage Given to Date in Gy 44.7280846 ARIA Session Dosage Given in Gy 1.43304813 ARIA Plan ID Rt BOOST Prn ARIA Plan Name Rt BOOST Prn ARIA Fractions Treated to Date 2 ARIA Prescribed Dose Per Fraction in Gy 2 ARIA Prescribed Dose in cGY 1,400 ARIA Site Being Treated Breast, Right-cT1N0 Rt Brst Boost ARIA Site Being Treated Breast, Right-cT1N0 ER+ Rt Breast IDC ARIA 01/04/2023 1:14 PM EDT us Yas Page MD RADIATION ONCOLOGY ORDERABLES nal Result [facility] [address] [place] [place] [address] * RADIATION TREATMENT SUMMARY (01/01/2023 1:14 PM EDT) Course ID C1 ARIA Course Start Date 12/01/2022 11:16:33 AM [place] Primary Oncologist Yas Page Session Number 16 ARIA Treatment Date_Time 01/01/2023 1:14:29 PM ARIA Treatment Elapsed Days 22 ARIA Fractions Treated 16 ARIA Reference Point ID Boost CalcPt ARIA Dosage Given to Date in Gy 2.64006275 ARIA Session Dosage Given in Gy 2.06783417 ARIA Reference Point ID calc bst ARIA Dosage Given to Date in Gy 2.7786550 ARIA Session Dosage Given in Gy 2.6802227 ARIA Reference Point ID PTV seroma RP ARIA Dosage Given to Date in Gy 2 ARIA Session Dosage Given in Gy 2 ARIA Reference Point ID RtBrst prn ISO ARIA Dosage Given to Date in Gy 42.66886452 ARIA Session Dosage Given in Gy 1.06179288 ARIA Plan ID Rt BOOST Prn ARIA Plan Name Rt BOOST Prn ARIA Fractions Treated to Date 1 ARIA Prescribed Dose Per Fraction in Gy 2 ARIA Prescribed Dose in cGY 1,400 ARIA Site Being Treated Breast, Right-cT1N0 Rt Brst Boost ARIA Site Being Treated Breast, Right-cT1N0 ER+ Rt Breast IDC ARIA 01/01/2023 1:14 PM EDT us Yas Page MD RADIATION ONCOLOGY ORDERABLES Fi nal Result [facility] [address] [place] [address] * RADIATION TREATMENT SUMMARY (12/31/2022 1:11 PM EDT) Course ID C1 ARIA Course Start Date 12/01/2022 11:16:33 AM [place] Primary Oncologist Yas Page Session Number 15 ARIA Treatment Date_Time 12/31/2022 1:11:52 PM ARIA Treatment Elapsed Days 21 ARIA Fractions Treated 16 ARIA Reference Point ID Calc Pt rt brst ARIA Dosage Given to Date in Gy 41.0592128 ARIA Session Dosage Given in Gy 2.5296459 ARIA Reference Point ID CalcPt2 RtBrst ARIA Dosage Given to Date in Gy 40.6691967 ARIA Session Dosage Given in Gy 2.9221438 ARIA Reference Point ID [email or web address] ARIA Dosage Given to Date in Gy 42.6853733 ARIA Session Dosage Given in Gy 2.4351690 ARIA Reference Point ID Rt Breast RP ARIA Dosage Given to Date in Gy 40.05 ARIA Session Dosage Given in Gy 2.67 ARIA Reference Point ID RtBrst prn ISO ARIA Dosage Given to Date in Gy 41.0724581 ARIA Session Dosage Given in Gy 2.08727323 ARIA Plan ID RtBreastPr EZ ARIA Plan Name RtBreastPrn EZ ARIA Fractions Treated to Date 15 ARIA Prescribed Dose Per Fraction in Gy 2.67 ARIA Prescribed Dose in cGY 4,005 ARIA Site Being Treated Breast, Right-cT1N0 Rt Brst Boost ARIA Site Being Treated Breast, Right-cT1N0 ER+ Rt Breast IDC ARIA 12/31/2022 1:11 PM EDT us Yas Page MD RADIATION ONCOLOGY ORDERABLES Fi nal Result [place] [place] [address] * RADIATION TREATMENT SUMMARY (12/30/2022 3:53 PM EDT) Course ID C1 ARIA Course Start Date 12/01/2022 11:16:33 AM ARI[facility] Primary Oncologist Yas Page ARIA Session Number 14 ARIA Treatment Date_Time 12/30/2022 3:53:20 PM ARIA Treatment Elapsed Days 20 ARIA Fractions Treated 15 ARIA Reference Point ID Calc Pt rt brst ARIA Dosage Given to Date in Gy 39.357536 ARIA Session Dosage Given in Gy 2.1904909 ARIA Reference Point ID CalcPt2 RtBrst ARIA Dosage Given to Date in Gy 37.2249888 ARIA Session Dosage Given in Gy 2.3553551 ARIA Reference Point ID [email or web address] ARIA Dosage Given to Date in Gy 39.964160 ARIA Session Dosage Given in Gy 2.9889728 ARIA Reference Point ID Rt Breast RP ARIA Dosage Given to Date in Gy 37.38 ARIA Session Dosage Given in Gy 2.67 ARIA Reference Point ID RtBrst prn ISO ARIA Dosage Given to Date in Gy 38.75579516 ARIA Session Dosage Given in Gy 2.60793958 ARIA Plan ID RtBreastPr EZ ARIA Plan Name RtBreastPrn EZ ARIA Fractions Treated to Date 14 ARIA Prescribed Dose Per Fraction in Gy 2.67 ARIA Prescribed Dose in cGY 4,005 ARIA Site Being Treated Breast, Right-cT1N0 Rt Brst Boost ARIA Site Being Treated Breast, Right-cT1N0 ER+ Rt Breast IDC ARIA 12/30/2022 3:53 PM EDT us Yas Page MD RADIATION ONCOLOGY ORDERABLES Fi nal Result [facility] [place] [address] * RADIATION TREATMENT SUMMARY (12/28/2022 1:14 PM EDT) Course ID C1 ARIA Course Start Date 12/01/2022 11:16:33 AM [place] Primary Oncologist Yas Page ARIA Session Number 13 ARIA Treatment Date_Time 12/28/2022 1:14:09 PM ARIA Treatment Elapsed Days 18 ARIA Fractions Treated 14 ARIA Reference Point ID Calc Pt rt brst ARIA Dosage Given to Date in Gy 36.5901816 ARIA Session Dosage Given in Gy 2.3567460 ARIA Reference Point ID CalcPt2 RtBrst ARIA Dosage Given to Date in Gy 34.7291743 ARIA Session Dosage Given in Gy 2.4773862 ARIA Reference Point ID [email or web address] ARIA Dosage Given to Date in Gy 36.5524098 ARIA Session Dosage Given in Gy 2.3348730 ARIA Reference Point ID Rt Breast RP ARIA Dosage Given to Date in Gy 34.71 ARIA Session Dosage Given in Gy 2.67 ARIA Reference Point ID RtBrst prn ISO ARIA Dosage Given to Date in Gy 35.82606873 ARIA Session Dosage Given in Gy 2.71778079 ARIA Plan ID Rt BOOST Prn ARIA Plan Name Rt BOOST Prn ARIA Fractions Treated to Date 0 ARIA Prescribed Dose Per Fraction in Gy 2 ARIA Prescribed Dose in cGY 1,400 ARIA Site Being Treated Breast, Right-cT1N0 Rt Brst Boost ARIA Site Being Treated Breast, Right-cT1N0 ER+ Rt Breast IDC ARIA 12/28/2022 1:14 PM EDT us Yas Page MD RADIATION ONCOLOGY ORDERABLES nal Result [facility] [address] [place] [address] * RADIATION TREATMENT SUMMARY (12/25/2022 1:19 PM EDT) Course ID C1 ARIA Course Start Date 12/01/2022 11:16:33 AM [facility]ED[facility] Primary Oncologist Yas Page ARIA Session Number 12 ARIA Treatment Date_Time 12/25/2022 1:19:54 PM ARIA Treatment Elapsed Days 15 ARIA Fractions Treated 12 ARIA Reference Point ID Calc Pt rt brst ARIA Dosage Given to Date in Gy 33.262214 ARIA Session Dosage Given in Gy 2.0497693 ARIA Reference Point ID [email or web address] RtBrst ARIA Dosage Given to Date in Gy 32.1342440 ARIA Session Dosage Given in Gy 2.6663258 ARIA Reference Point ID [email or web address] ARIA Dosage Given to Date in Gy 33.830074 ARIA Session Dosage Given in Gy 2.8638831 ARIA Reference Point ID Rt Breast RP ARIA Dosage Given to Date in Gy 32.04 ARIA Session Dosage Given in Gy 2.67 ARIA Reference Point ID RtBrst prn ISO ARIA Dosage Given to Date in Gy 32.05665662 ARIA Session Dosage Given in Gy 2.66545947 ARIA Plan ID RtBreastPr EZ ARIA Plan Name RtBreastPrn EZ ARIA Fractions Treated to Date 12 ARIA Prescribed Dose Per Fraction in Gy 2.67 ARIA Prescribed Dose in cGY 4,005 ARIA Site Being Treated Breast, Right-cT1N0 Rt Brst Boost ARIA Site Being Treated Breast, Right-cT1N0 ER+ Rt Breast IDC ARIA 12/25/2022 1:19 PM EDT us Yas Page MD RADIATION ONCOLOGY ORDERABLES nal [facility] [place] [address] * RADIATION TREATMENT SUMMARY (12/24/2022 1:23 PM EDT) Course ID C1 ARIA Course Start Date 12/01/2022 11:16:33 AM [facility] Primary Oncologist Yas Page ARICharles Session Number 11 ARIA Treatment Date_Time 12/24/2022 1:23:54 PM ARIA Treatment Elapsed Days 14 ARIA Fractions Treated 11 ARIA Reference Point ID Calc Pt rt brst ARIA Dosage Given to Date in Gy 30.0882544 ARIA Session Dosage Given in Gy 2.4546825 ARIA Reference Point ID [email or web address] RtBrst ARIA Dosage Given to Date in Gy 29.2750859 ARIA Session Dosage Given in Gy 2.8165248 ARIA Reference Point ID [email or web address] ARIA Dosage Given to Date in Gy 30.8097267 ARIA Session Dosage Given in Gy 2.2138870 ARIA Reference Point ID Rt Breast RP ARIA Dosage Given to Date in Gy 29.37 ARIA Session Dosage Given in Gy 2.67 ARIA Reference Point ID RtBrst prn ISO ARIA Dosage Given to Date in Gy 30.69681002 ARIA Session Dosage Given in Gy 2.06352321 ARIA Plan ID RtBreastPr EZ ARIA Plan Name RtBreastPrn EZ ARIA Fractions Treated to Date 11 ARIA Prescribed Dose Per Fraction in Gy 2.67 ARIA Prescribed Dose in cGY 4,005 ARIA Site Being Treated Breast, Right-cT1N0 Rt Brst Boost ARIA Site Being Treated Breast, Right-cT1N0 ER+ Rt Breast IDC ARIA 12/24/2022 1:23 PM EDT us Yas Page MD RADIATION ONCOLOGY ORDERABLES nal Result [facility] [address] [facility] [place] [address] * RADIATION TREATMENT SUMMARY (12/23/2022 1:36 PM EDT) Course ID C1 ARIA Course Start Date 12/01/2022 11:16:33 AM [facility] Primary Oncologist Yas Page Session Number 10 ARIA Treatment Date_Time 12/23/2022 1:36:01 PM ARIA Treatment Elapsed Days 13 ARIA Fractions Treated 10 ARIA Reference Point ID Calc Pt rt brst ARIA Dosage Given to Date in Gy 27.041380 ARIA Session Dosage Given in Gy 2.2071462 ARIA Reference Point ID [email or web address] RtBrst ARIA Dosage Given to Date in Gy 26.099094 ARIA Session Dosage Given in Gy 2.1047396 ARIA Reference Point ID [email or web address] ARIA Dosage Given to Date in Gy 28.759354 ARIA Session Dosage Given in Gy 2.5506265 ARIA Reference Point ID Rt Breast RP ARIA Dosage Given to Date in Gy 26.7 ARIA Session Dosage Given in Gy 2.67 ARIA Reference Point ID RtBrst prn ISO ARIA Dosage Given to Date in Gy 27.3392746 ARIA Session Dosage Given in Gy 2.26035168 ARIA Plan ID RtBreastPr EZ ARIA Plan Name RtBreastPrn EZ ARIA Fractions Treated to Date 10 ARIA Prescribed Dose Per Fraction in Gy 2.67 ARIA Prescribed Dose in cGY 4,005 ARIA Site Being Treated Breast, Right-cT1N0 Rt Brst Boost ARIA Site Being Treated Breast, Right-cT1N0 ER+ Rt Breast IDC ARIA 12/23/2022 1:36 PM EDT us Yas Page MD RADIATION ONCOLOGY ORDERABLES Fi nal Result ARIA [address] [facility] [place] [address] * RADIATION TREATMENT SUMMARY (12/22/2022 1:19 PM EDT) Course ID C1 ARIA Course Start Date 12/01/2022 11:16:33 AM ARIA Primary Oncologist Yas Page Session Number 9 ARIA Treatment Date_Time 12/22/2022 1:19:30 PM ARIA Treatment Elapsed Days 12 ARIA Fractions Treated 9 ARIA Reference Point ID Calc Pt rt brst ARIA Dosage Given to Date in Gy 25.5203849 ARIA Session Dosage Given in Gy 2.5641443 ARIA Reference Point ID [email or web address] RtBrst ARIA Dosage Given to Date in Gy 24.1382303 ARIA Session Dosage Given in Gy 2.4758498 ARIA Reference Point ID [email or web address] ARIA Dosage Given to Date in Gy 25.1933184 ARIA Session Dosage Given in Gy 2.7531203 ARIA Reference Point ID Rt Breast RP ARIA Dosage Given to Date in Gy 24.03 ARIA Session Dosage Given in Gy 2.67 ARIA Reference Point ID RtBrst prn ISO ARIA Dosage Given to Date in Gy 24.83317518 ARIA Session Dosage Given in Gy 2.25047321 ARIA Plan ID RtBreastPr EZ ARIA Plan Name RtBreastPrn EZ ARIA Fractions Treated to Date 9 ARIA Prescribed Dose Per Fraction in Gy 2.67 ARIA Prescribed Dose in cGY 4,005 ARIA Site Being Treated Breast, Right-cT1N0 Rt Brst Boost ARIA Site Being Treated Breast, Right-cT1N0 ER+ Rt Breast IDC ARIA 12/22/2022 1:1 9 PM EDT us Yas Page MD RADIATION ONCOLOGY ORDERABLES nal Result [facility] [address] [facility] [place] [address] * RADIATION TREATMENT SUMMARY (12/21/2022 2:19 PM EDT) Course ID C1 ARIA Course Start Date 12/01/2022 11:16:33 AM ARIA Primary Oncologist Yas Page Session Number 8 ARIA Treatment Date_Time 12/21/2022 2:19:11 PM ARIA Treatment Elapsed Days 11 ARIA Fractions Treated 8 ARIA Reference Point ID Calc Pt rt brst ARIA Dosage Given to Date in Gy 22.375309 ARIA Session Dosage Given in Gy 2.2470095 ARIA Reference Point ID [email or web address] RtBrst ARIA Dosage Given to Date in Gy 21.5913373 ARIA Session Dosage Given in Gy 2.7222708 ARIA Reference Point ID [email or web address] ARIA Dosage Given to Date in Gy 22.201639 ARIA Session Dosage Given in Gy 2.7442314 ARIA Reference Point ID Rt Breast RP ARIA Dosage Given to Date in Gy 21.36 ARIA Session Dosage Given in Gy 2.67 ARIA Reference Point ID RtBrst prn ISO ARIA Dosage Given to Date in Gy 21.12692533 ARIA Session Dosage Given in Gy 2.07790605 ARIA Plan ID RtBreastPr EZ ARIA Plan Name RtBreastPrn EZ ARIA Fractions Treated to Date 8 ARIA Prescribed Dose Per Fraction in Gy 2.67 ARIA Prescribed Dose in cGY 4,005 ARIA Site Being Treated Breast, Right-cT1N0 Rt Brst Boost ARIA Site Being Treated Breast, Right-cT1N0 ER+ Rt Breast IDC ARIA 12/21/2022 2:19 PM EDT us Yas Page MD RADIATION ONCOLOGY ORDERABLES Fi nal Result [facility] [address] [place] [address] [place] [address] * RADIATION TREATMENT SUMMARY (12/18/2022 3:43 PM EDT) Course ID C1 ARIA Course Start Date 12/01/2022 11:16:33 AM [place] Primary Oncologist Yas Page Session Number 7 ARIA Treatment Date_Time 12/18/2022 3:43:43 PM ARIA Treatment Elapsed Days 8 ARIA Fractions Treated 7 ARIA Reference Point ID Calc Pt rt brst ARIA Dosage Given to Date in Gy 19.8861361 ARIA Session Dosage Given in Gy 2.7438793 ARIA Reference Point ID [email or web address] RtBrst ARIA Dosage Given to Date in Gy 18.4804433 ARIA Session Dosage Given in Gy 2.6357615 ARIA Reference Point ID [email or web address] ARIA Dosage Given to Date in Gy 19.7682137 ARIA Session Dosage Given in Gy 2.3137077 ARIA Reference Point ID Rt Breast RP ARIA Dosage Given to Date in Gy 18.69 ARIA Session Dosage Given in Gy 2.67 ARIA Reference Point ID RtBrst prn ISO ARIA Dosage Given to Date in Gy 19.29021392 ARIA Session Dosage Given in Gy 2.41699897 ARIA Plan ID RtBreastPr EZ ARIA Plan Name RtBreastPrn EZ ARIA Fractions Treated to Date 7 ARIA Prescribed Dose Per Fraction in Gy 2.67 ARIA Prescribed Dose in cGY 4,005 ARIA Site Being Treated Breast, Right-cT1N0 Rt Brst Boost ARIA Site Being Treated Breast, Right-cT1N0 ER+ Rt Breast IDC ARIA 12/18/2022 3:43 PM EDT us Yas Page MD RADIATION ONCOLOGY ORDERABLES Fi nal Result Performing Organization Address City/[facility]/ZIP Co de Phone Number [facility] [place] [address] * RADIATION TREATMENT SUMMARY (12/17/2022 2:18 PM EDT) Course ID C1 ARIA Course Start Date 12/01/2022 11:16:33 AM [place] Primary Oncologist Yas Page ARICharles Session Number 6 ARIA Treatment Date_Time 12/17/2022 2:18:20 PM ARIA Treatment Elapsed Days 7 ARIA Fractions Treated 6 ARIA Reference Point ID Calc Pt rt brst ARIA Dosage Given to Date in Gy 16.974993 ARIA Session Dosage Given in Gy 2.0617338 ARIA Reference Point ID [email or web address] RtBrst ARIA Dosage Given to Date in Gy 16.7995099 ARIA Session Dosage Given in Gy 2.8533581 ARIA Reference Point ID [email or web address] ARIA Dosage Given to Date in Gy 16.759695 ARIA Session Dosage Given in Gy 2.3483878 ARIA Reference Point ID Rt Breast RP ARIA Dosage Given to Date in Gy 16.02 ARIA Session Dosage Given in Gy 2.67 ARIA Reference Point ID RtBrst prn ISO ARIA Dosage Given to Date in Gy 16.48979130 ARIA Session Dosage Given in Gy 2.46942420 ARIA Plan ID RtBreastPr EZ ARIA Plan Name RtBreastPrn EZ ARIA Fractions Treated to Date 6 ARIA Prescribed Dose Per Fraction in Gy 2.67 ARIA Prescribed Dose in cGY 4,005 ARIA Site Being Treated Breast, Right-cT1N0 Rt Brst Boost ARIA Site Being Treated Breast, Right-cT1N0 ER+ Rt Breast IDC ARIA 12/17/2022 2:18 PM EDT us Yas Page MD RADIATION ONCOLOGY ORDERABLES Fi nal Result [facility] [address] [facility] [place] [address] * RADIATION TREATMENT SUMMARY (12/16/2022 4:16 PM EDT) Course ID C1 ARIA Course Start Date 12/01/2022 11:16:33 AM [place] Primary Oncologist Gjyshi, Olsi ARIA Session Number 5 ARIA Treatment Date_Time 12/16/2022 4:16:35 PM ARIA Treatment Elapsed Days 6 ARIA Fractions Treated 5 ARIA Reference Point ID Calc Pt rt brst ARIA Dosage Given to Date in Gy 13.0889876 ARIA Session Dosage Given in Gy 2.0879499 ARIA Reference Point ID [email or web address] RtBrst ARIA Dosage Given to Date in Gy 13.6516733 ARIA Session Dosage Given in Gy 2.6240898 ARIA Reference Point ID [email or web address] ARIA Dosage Given to Date in Gy 14.0629770 ARIA Session Dosage Given in Gy 2.3683936 ARIA Reference Point ID Rt Breast RP ARIA Dosage Given to Date in Gy 13.35 ARIA Session Dosage Given in Gy 2.67 ARIA Reference Point ID RtBrst prn ISO ARIA Dosage Given to Date in Gy 13.8841786 ARIA Session Dosage Given in Gy 2.41503535 ARIA Plan ID RtBreastPr EZ ARIA Plan Name RtBreastPrn EZ ARIA Fractions Treated to Date 5 ARIA Prescribed Dose Per Fraction in Gy 2.67 ARIA Prescribed Dose in cGY 4,005 ARIA Site Being Treated Breast, Right-cT1N0 Rt Brst Boost ARIA Site Being Treated Breast, Right-cT1N0 ER+ Rt Breast IDC ARIA 12/16/2022 4:16 PM EDT us Yas Page MD RADIATION ONCOLOGY ORDERABLES nal Result [address] [place] [address] * RADIATION TREATMENT SUMMARY (12/15/2022 3:55 PM EDT) Course ID C1 ARIA Course Start Date 12/01/2022 11:16:33 AM [place] Primary Oncologist Yas Page Session Number 4 ARIA Treatment Date_Time 12/15/2022 3:55:21 PM ARIA Treatment Elapsed Days 5 ARIA Fractions Treated 4 ARIA Reference Point ID Calc Pt rt brst ARIA Dosage Given to Date in Gy 11.569345 ARIA Session Dosage Given in Gy 2.2814604 ARIA Reference Point ID [email or web address] RtBrst ARIA Dosage Given to Date in Gy 10.3651411 ARIA Session Dosage Given in Gy 2.6196301 ARIA Reference Point ID [email or web address] ARIA Dosage Given to Date in Gy 11.785528 ARIA Session Dosage Given in Gy 2.5301972 ARIA Reference Point ID Rt Breast RP ARIA Dosage Given to Date in Gy 10.68 ARIA Session Dosage Given in Gy 2.67 ARIA Reference Point ID RtBrst prn ISO ARIA Dosage Given to Date in Gy 10.22836042 ARIA Session Dosage Given in Gy 2.46657409 ARIA Plan ID RtBreastPr EZ ARIA Plan Name RtBreastPrn EZ ARIA Fractions Treated to Date 4 ARIA Prescribed Dose Per Fraction in Gy 2.67 ARIA Prescribed Dose in cGY 4,005 ARIA Site Being Treated Breast, Right-cT1N0 Rt Brst Boost ARIA Site Being Treated Breast, Right-cT1N0 ER+ Rt Breast IDC ARIA 12/15/2022 3:55 PM EDT us Yas Page MD RADIATION ONCOLOGY ORDERABLES nal Result [address] [address] * RADIATION TREATMENT SUMMARY (12/14/2022 4:26 PM EDT) Course ID C1 ARIA Course Start Date 12/01/2022 11:16:33 AM [place] Primary Oncologist Yas Page Session Number 3 ARIA Treatment Date_Time 12/14/2022 4:26:38 PM ARIA Treatment Elapsed Days 4 ARIA Fractions Treated 3 ARIA Reference Point ID Calc Pt rt brst ARIA Dosage Given to Date in Gy 8.8968714 ARIA Session Dosage Given in Gy 2.8722162 ARIA Reference Point ID [email or web address] RtBrst ARIA Dosage Given to Date in Gy 8.6877466 ARIA Session Dosage Given in Gy 2.2394763 ARIA Reference Point ID [email or web address] ARIA Dosage Given to Date in Gy 8.5262888 ARIA Session Dosage Given in Gy 2.6961810 ARIA Reference Point ID Rt Breast RP ARIA Dosage Given to Date in Gy 8.01 ARIA Session Dosage Given in Gy 2.67 ARIA Reference Point ID RtBrst prn ISO ARIA Dosage Given to Date in Gy 8.82466915 ARIA Session Dosage Given in Gy 2.80564265 ARIA Plan ID RtBreastPr EZ ARIA Plan Name RtBreastPrn EZ ARIA Fractions Treated to Date 3 ARIA Prescribed Dose Per Fraction in Gy 2.67 ARIA Prescribed Dose in cGY 4,005 ARIA Site Being Treated Breast, Right-cT1N0 Rt Brst Boost ARIA Site Being Treated Breast, Right-cT1N0 ER+ Rt Breast IDC ARIA 12/14/2022 4:26 PM EDT us Yas Page MD RADIATION ONCOLOGY ORDERABLES Fi nal Result [facility] [address] [facility] [place] [address] * RADIATION TREATMENT SUMMARY (12/11/2022 4:05 PM EDT) Course ID C1 ARIA Course Start Date 12/01/2022 11:16:33 AM [place] Primary Oncologist Yas Page Session Number 2 ARIA Treatment Date_Time 12/11/2022 4:05:25 PM ARIA Treatment Elapsed Days 1 ARIA Fractions Treated 2 ARIA Reference Point ID Calc Pt rt brst ARIA Dosage Given to Date in Gy 5.782121 ARIA Session Dosage Given in Gy 2.7930519 ARIA Reference Point ID [email or web address] RtBrst ARIA Dosage Given to Date in Gy 5.7069634 ARIA Session Dosage Given in Gy 2.0920219 ARIA Reference Point ID [email or web address] ARIA Dosage Given to Date in Gy 5.979449 ARIA Session Dosage Given in Gy 2.8034436 ARIA Reference Point ID Rt Breast RP ARIA Dosage Given to Date in Gy 5.34 ARIA Session Dosage Given in Gy 2.67 ARIA Reference Point ID RtBrst prn ISO ARIA Dosage Given to Date in Gy 5.02145474 ARIA Session Dosage Given in Gy 2.47804722 ARIA Plan ID RtBreastPr EZ ARIA Plan Name RtBreastPrn EZ ARIA Fractions Treated to Date 2 ARIA Prescribed Dose Per Fraction in Gy 2.67 ARIA Prescribed Dose in cGY 4,005 ARIA Site Being Treated Breast, Right-cT1N0 Rt Brst Boost ARIA Site Being Treated Breast, Right-cT1N0 ER+ Rt Breast IDC ARIA 12/11/2022 4:05 PM EDT us Yas Page MD RADIATION ONCOLOGY ORDERABLES Fi nal Result [facility] [address] [place] [address] * RADIATION TREATMENT SUMMARY (12/10/2022 3:17 PM EDT) Course ID C1 ARIA Course Start Date 12/01/2022 11:16:33 AM [place] Primary Oncologist Yas Page ARICharles Session Number 1 ARIA Treatment Date_Time 12/10/2022 3:17:01 PM ARIA Treatment Elapsed Days 0 ARIA Fractions Treated 1 ARIA Reference Point ID Calc Pt rt brst ARIA Dosage Given to Date in Gy 2.9231312 ARIA Session Dosage Given in Gy 2.9707214 ARIA Reference Point ID [email or web address] RtBrst ARIA Dosage Given to Date in Gy 2.6696464 ARIA Session Dosage Given in Gy 2.2726216 ARIA Reference Point ID [email or web address] ARIA Dosage Given to Date in Gy 2.9405637 ARIA Session Dosage Given in Gy 2.6414283 ARIA Reference Point ID Rt Breast RP ARIA Dosage Given to Date in Gy 2.67 ARIA Session Dosage Given in Gy 2.67 ARIA Reference Point ID RtBrst prn ISO ARIA Dosage Given to Date in Gy 2.67065444 ARIA Session Dosage Given in Gy 2.54265981 ARIA Plan ID RtBreastPr EZ ARIA Plan Name RtBreastPrn EZ ARIA Fractions Treated to Date 1 ARIA Prescribed Dose Per Fraction in Gy 2.67 ARIA Prescribed Dose in cGY 4,005 ARIA Site Being Treated Breast, Right-cT1N0 Rt Brst Boost ARIA Site Being Treated Breast, Right-cT1N0 ER+ Rt Breast IDC ARIA 12/10/2022 3:17 PM EDT us Yas Page MD RADIATION ONCOLOGY ORDERABLES Fi nal Result [facility] [address] [place], [place] [address] * CT CHEST RADIATION THERAPY PLANNING WO CONTRAST (12/01/2022 11:06 AM EDT) Anatomical Region Laterality Modality Chest Computed Tomogra phy 12/01/2022 11:0 6 AM EDT Impressions 12/01/2022 12:18 PM EDT Satisfactory-appearing CT for treatment planning purposes. - Note: Radiology results need to be interpreted within a comprehensive clinical context. If you have questions about the radiology report, please contact the office of the ordering clinician. Narrative 12/01/2022 12:[address] CHEST FOR XRT PLANNING, 12/01/2022 11:06 AM CLINICAL HISTORY: C50.911-Malignant neoplasm of unspecified site of right female breast (HCC)-ICD-10-CM. COMPARISON: None. PROCEDURE COMMENTS: Multi detector CT scanning of the region of interest per radiation therapy protocol. FINDINGS: Markers were placed. Examination appears technically adequate with satisfactory field of view and coverage range. Patient scanned in the prone position. Postsurgical change in the RIGHT breast and RIGHT axilla No mediastinal or hilar adenopathy. No pleural or pericardial effusion. Incidental hiatal hernia Lung parenchyma normal Procedure Note Abiel Nixon MD - 12/01/2022 CT CHEST FOR XRT PLANNING, 12/01/2022 11:06 AM CLINICAL HISTORY: C50.911-Malignant neoplasm of unspecified site ofright female breast (HCC)-ICD-10-CM. COMPARISON: None. PROCEDURE COMMENTS: Multi detector CT scanning of the region of interestper radiation therapy protocol. FINDINGS: Markers were placed. Examination appears technically adequatewith satisfactory field of view and coverage range. Patient scanned in theprone position. Postsurgical change in the RIGHT breast and RIGHT axilla No mediastinal or hilar adenopathy. No pleural or pericardial effusion. Incidental hiatal hernia Lung parenchyma normal IMPRESSION: Satisfactory-appearing CT for treatment planning purposes. - Note: Radiology results need to be interpreted within a comprehensiveclinical context. If you have questions about the radiology report, please contactthe office of the ordering clinician. us Yas Page MD IMG CT ORDERABLES Final Result * PATHOLOGY TISSUE REQUEST (10/23/2022 12:00 PM EDT) CASE REPORT Surgical Pathology Case: [id number] Authorizing Provider: Kaykay Benito MD Collected: 10/23/2022 1200 Ordering Location: ED SURGERY Received: 10/23/2022 1255 Pathologist: Nishant Fernandes MD Specimens: A) - Lymph Node, Right sentinel node B) - Breast, Right, Right Breast Lumpectomy 10/27/2022 11:38 AM EDT [facility] FINAL DIAGNOSIS A. [place] lymph node, right axilla, excision: - Three lymph nodes, negative for metastatic tumor (0/3). B. 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 - Ductal carcinoma in situ (DCIS), low-grade. - Previous biopsy site changes. - Margins are negative for invasive tumor (closest superior, 0.2 mm). 10/27/2022 11:38 AM EDT [facility] at 1138 EDT GROSS DESCRIPTION A. Received in formalin in a container labeled with the patient's name, hospital number, and Right sentinel node , is a 3.4 x 3.1 x 1.6 cm aggregate of yellow and lobulated fibroadipose tissue. Three winchester-blue possible lymph nodes are identified, 1.0-2.6 cm in greatest dimension. The possible lymph nodes are serially sectioned to show winchester to yellow and lobulated cut surfaces. One possible lymph node is previously dyed blue. Cold ischemia time: No distinct time is given (Collection time: 1200 on 10/23/2022) Formalin fixation time: 71 hours (Time removed from formalin: 1100 on 10/26/2022)The possible lymph nodes are entirely submitted in 6 cassettes as follows: A1 - One previously dyed blue possible lymph node, serially sectioned A2 - One possible lymph node, serially sectioned A3-A6 - One possible lymph node, serially sectioned Marjorie Cochran MS, PA ([facility]) 10/26/2022 9:55 AM B. Specimen: Received fresh, in a container labeled with the patient's name, hospital number, and Right Breast Lumpectomy : Laterality: Right breast Orientation provided by surgeon: Long stitch lateral, short stitch superior Size: Anterior - Posterior: 5.9 cm Medial - Lateral: 2.7 cm Superior - Inferior: 5.5 cm PRIYANKA baker apprentice: Present in level 12, abutting the lateral margin Pin: Inserted along the lateral margin of level 16 Levels: 1-21 from anterior to posterior Ink identifiers: Superior = [place] Anterior = Blue Medial = Red Inferior = Green Posterior = Black Lateral = Yellow Mass gross morphologic description: Size: Anterior - Posterior: 1.6 cm Medial - Lateral: 1.4 cm Superior - Inferior: 1.8 cm Gross appearance: Winchester-white to pale yellow, stellate, and ill-defined Mass in level(s): 11-16 Biopsy Clip: A cylindrical dark stewart biopsy clip is present in level 12, within the mass Distance to margins: Superior: 0.5 cm Inferior: 2.4 cm Anterior: 3.3 cm Posterior: 1.0 cm Medial: 0.8 cm Lateral: Abuts Other pathology: The remaining cut surfaces are 95% yellow and lobulated adipose tissue, and 5% winchester-white fibrous tissue with no other distinct lesions or masses identified. Cold ischemia time: 14 minutes (Time removed from patient: 1220, Time placed in formalin: 1234 on 10/23/2022) Formalin fixation time: 71.5 hours (Time removed from formalin 1200 on 10/26/2022)Represe ntative sections submitted in 12 cassettes as follows: B1 - Sales Professional Bilingual sections from level 1 (anterior margin), perpendicularly sectioned B2 - Sales Professional Bilingual sections from level 21 (posterior margin), perpendicularly sectioned B3 - Sales Professional Bilingual section from level 10 with area anterior to start of mass including medial, lateral, and superior margins B4 - Sales Professional Bilingual section from level 11 with start of mass including medial, lateral, and superior margins B5 - Sales Professional Bilingual section from level 12 with mass including biopsy site and mass closest to superior margin B6-B7 - Sales Professional Bilingual sections from level 13 with mass closest to inferior margin including possible biopsy cavity, bisected (B6 with mass and possible biopsy cavity including superior and lateral margins; B7 with inferior margin closest to mass including lateral margin B8 - Sales Professional Bilingual section from level 14 with mass closest to medial margin including lateral margin B9-B10 - Sales Professional Bilingual sections from level 15 with largest cross-section of mass and mass closest to lateral and posterior margins, bisected (B8 with mass closest to lateral margin including superior and medial margins; B9 with posterior margin closest to mass including medial and lateral margins) B11 - Sales Professional Bilingual section from level 16 with end of mass including lateral, superior, and medial margins B12 - Sales Professional Bilingual section from level 17 with area posterior to end of mass including superior, medial, and lateral margins Marjorie Cochran MS, PA ([facility]) 10/26/2022 9:55 AM 10/27/2022 11:38 AM [facility] MICROSCOPIC DESCRIPTION Microscopic examination is performed and the findings corroborate the diagnosis. 10/27/2022 11:38 AM [facility] BEST TISSUE BLOCK FOR ANCILLARY STUDIES B9,11 10/27/2022 11:38 AM [facility] SYNOPTIC REPORT CHECKLIST INVASIVE CARCINOMA OF THE BREAST: Resection INVASIVE CARCINOMA OF THE BREAST: COMPLETE EXCISION - All Specimens 8th Edition - Protocol posted: 07/30/2021 SPECIMEN Procedure: Excision (less than total mastectomy) Specimen Laterality: Right TUMOR Histologic Type: Invasive carcinoma of no special type (ductal) Histologic Grade ([place] Histologic Score): Glandular (Acinar) / Tubular Differentiation: Score 3 Nuclear Pleomorphism: Score 2 Mitotic Rate: Score 1 Overall Grade: Grade 2 (scores of 6 or 7) Tumor Size: Greatest dimension of largest invasive focus (Millimeters): 18 mm Tumor Focality: Single focus of invasive carcinoma Ductal Carcinoma In Situ (DCIS): Present Architectural Patterns: Cribriform Nuclear Grade: Grade I (low) Necrosis: Not identified Lymphovascular Invasion: Not identified Microcalcificatio ns: Present in DCIS Microcalcificatio ns: Present in invasive carcinoma Treatment Effect in the Breast: No known presurgical therapy MARGINS Margin Status for Invasive Carcinoma: All margins negative for invasive carcinoma Distance from Invasive Carcinoma to Closest Margin: 0.2 mm Closest Margin(s) to Invasive Carcinoma: Superior Distance from Invasive Carcinoma to Lateral Margin: 1 mm Margin Status for DCIS: All margins negative for DCIS Distance from DCIS to Closest Margin: 1 mm Closest Margin(s) to DCIS: Posterior REGIONAL LYMPH NODES Regional Lymph Node Status: : All regional lymph nodes negative for tumor Total Number of Lymph Nodes Examined (sentinel and non-sentinel): 3 Number of [place] Nodes Examined: 3 PATHOLOGIC STAGE CLASSIFICATION (pTNM, AJCC 8th Edition) Reporting of pT, pN, and (when applicable) pM categories is based on information available to the pathologist at the time the report is issued. As per the AJCC (Chapter 1, 8th Ed.) it is the managing physician s responsibility to establish the final pathologic stage based upon all pertinent information, including but potentially not limited to this pathology report. pT Category: pT1c Regional Lymph Nodes Modifier: (sn): [place] node(s) evaluated. pN Category: pN0 Breast Biomarker Testing Performed on Previous Biopsy: Estrogen Receptor (ER) Status: Positive (greater than 10% of cells demonstrate nuclear positivity) Percentage of Cells with Nuclear Positivity: 100 % Breast Biomarker Testing Performed on Previous Biopsy: Progesterone Receptor (PgR) Status: Positive Percentage of Cells with Nuclear Positivity: 100 % Breast Biomarker Testing Performed on Previous Biopsy: HER2 (by immunohistochemist ry): Equivocal (Score 2+) Breast Biomarker Testing Performed on Previous Biopsy: HER2 (by in situ hybridization): Negative (not amplified) Testing Performed on 10/27/2022 11:38 AM EDT [facility] EMBEDDED IMAGES 10/27/2022 11:38 AM EDT [facility] Tissue STRUCTURE OF LYMPH NODE / Unknown 10/23/2022 12:00 PM EDT 10/23/2022 12:55 PM EDT Tissue specimen (specimen) RIGHT BREAST STRUCTURE / Unknown 10/23/2022 12:20 PM EDT 10/23/2022 12:34 PM EDT Comment:Long stitch lateral, short stitch superior us Kaykay Benito MD PATHOLOGY ORDERABLES Final Result [facility] [address] [place] [address] [address] * MM [facility] TRIDENT SPECIMEN IMAGING (10/23/2022 11:01 AM EDT) Anatomical Region Laterality Modality N/A Mammography 10/23/2022 3:54 PM EDT Narrative 10/23/2022 3:54 PM EDT MM SURGICAL SPECIMEN IMAGING Intraoperative specimen submitted contains the mass, clip and reflector. A straight pin was placed into this portion of the specimen for pathology localization. Procedure Note Venus Jaramillo MD - 10/23/2022 MM SURGICAL SPECIMEN IMAGING Intraoperative specimen submitted contains the mass, clip and reflector.A straight pin was placed into this portion of the specimen for pathology localization. us Kaykay Benito MD IMG MAMMOGRAPHY ORDERABLES Final Result * (ABNORMAL) BASIC METABOLIC PANEL (10/19/2022 12:57 PM EDT) Sodium 140 136 - 145 mmol/L 10/19/2022 1:51 PM EDT [facility] Potassium 5.3(H) 3.5 - 5.0 mmol/L 10/19/2022 1:51 PM EDT [facility] Chloride 105 98 - 107 mmol/L 10/19/2022 1:51 PM EDT [facility] Total CO2 23 22 - 29 mmol/L 10/19/2022 1:51 PM EDT [facility] Anion Gap 12 7 - 16 mmol/L 10/19/2022 1:51 PM EDT [facility] Calcium 10.1 8.8 - 10.4 mg/dL 10/19/2022 1:51 PM EDT [facility] Glucose Lvl 89 82 - 100 mg/dL 10/19/2022 1:51 PM EDT [facility] BUN 21 8 - 23 mg/dL 10/19/2022 1:51 PM EDT [facility] Creatinine 1.16 0.51 - 1.30 mg/dL 10/19/2022 1:51 PM EDT [facility] eGFR (CKD-EPIcr 2020) 54(L) >=60 mL/min/1.7 3 m2 10/19/2022 1:51 PM EDT [facility] Comment:Estimated GFR was ca lculated using the CKD-EPIcr (2020) equation refit without race. The equation is recommended by the National Kid[employer] - [employer] [employer] Task Force. Blood VENOUS BLOOD / Unknown Venipuncture / Unknown 10/19/2022 12:57 PM EDT 10/19/2022 12:57 PM EDT us Chilango Szymanski SCIENCE INSTRUCTOR CHEMISTRY ORDERABLES Final R esult [facility] [address] [address] [place] [id number] [facility] [address] [place] [id number] * EK EKG 12 LEAD (10/19/2022 12:38 PM EDT) Anatomical Region Laterality Modality Electrocardiogra phy 10/19/2022 12:3 9 PM EDT Impressions 10/19/2022 3:[address] [facility] Test Date: 2022-10-19 Pat Name: KAYKAY TRAN Department: DEPID Room: Gender: Female Aquatics Manager: Am : 1960 Requested By: CHILANGO SZYMANSKI Order Number: [id number] Reading MD: Remington Mcconnell MD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 chronic ulcer of other part of right lower leg with fat layer exposed (HCC) 07/19/2019 Venous ulcer of right leg (HCC) 07/26/2019 Venous ulcer of right leg (HCC) 07/31/2019 Non-pressure chronic ulcer of other part of right lower leg with fat layer exposed (HCC) 07/31/2019 Malignant neoplasm of right female breast, unspecified estrogen receptor status, unspecified site of breast (HCC) 06/18/2022 Malignant neoplasm of upper-outer quadrant of right breast in female, estrogen receptor positive (HCC) 07/03/2022 Encounter for nonprocreative genetic counseling 07/15/2022 Invasive ductal carcinoma of right breast (HCC) 07/30/2022 Malignant neoplasm of right female breast, unspecified estrogen receptor status, unspecified site of breast (HCC) 08/04/2022 Invasive ductal carcinoma of right breast (HCC) 08/04/2022 Invasive ductal carcinoma of right breast (HCC) 08/04/2022 Post-menopausal Asymptomatic postmenopausal status (age-related) (natural) 08/04/2022 Post-menopausal Asymptomatic postmenopausal status (age-related) (natural) 09/30/2022 Malignant neoplasm of right female breast, unspecified estrogen receptor status, unspecified site of breast (HCC) 09/30/2022 Invasive ductal carcinoma of right breast (HCC) 10/01/2022 Invasive ductal carcinoma of right breast (HCC) 10/01/2022 Invasive ductal carcinoma of right breast (HCC) 10/15/2022 Invasive ductal carcinoma of right breast (HCC) 10/15/2022 Preop testing Preoperative examination, unspecified 10/16/2022 Primary hypertension Unspecified essential hypertension 10/16/2022 Preop testing Preoperative examination, unspecified 10/19/2022 Invasive ductal carcinoma of right breast (HCC) 10/19/2022 Preop testing Preoperative examination, unspecified 10/19/2022 Primary hypertension Unspecified essential hypertension 10/19/2022 Invasive ductal carcinoma of right breast (HCC) 10/23/2022 Preop testing Preoperative examination, unspecified 10/23/2022 Invasive ductal carcinoma of right breast (HCC) 10/23/2022 Postop check Follow-up examination, following unspecified surgery 11/06/2022 Invasive ductal carcinoma of right breast (HCC) 11/18/2022 Invasive ductal carcinoma of right breast (HCC) 11/24/2022 Invasive ductal carcinoma of right breast (HCC) 12/01/2022 Invasive ductal carcinoma of right breast (HCC) 12/01/2022 Invasive ductal carcinoma of right breast (HCC) 12/11/2022 Invasive ductal carcinoma of right breast (HCC) 12/18/2022 Invasive ductal carcinoma of right breast (HCC) 12/25/2022 Invasive ductal carcinoma of right breast (HCC) 01/01/2023 Invasive ductal carcinoma of right breast (HCC) 01/08/2023 Invasive ductal carcinoma of right breast (HCC) 02/09/2023 Encounter for follow-up examination after radiotherapy for malignant neoplasm 02/09/2023 Invasive ductal carcinoma of right breast (HCC) 05/20/2023 Encounter for monitoring aromatase inhibitor therapy Encounter for therapeutic drug monitoring 05/20/2023 Osteopenia, unspecified location 05/20/2023 Invasive ductal carcinoma of right breast (HCC) 08/17/2023 Encounter for monitoring aromatase inhibitor therapy Encounter for therapeutic drug monitoring 08/17/2023 Encounter for follow-up examination after radiotherapy for malignant neoplasm 08/17/2023 Invasive ductal carcinoma of right breast (HCC) 11/22/2023 Encounter for monitoring aromatase inhibitor therapy Encounter for therapeutic drug monitoring 11/22/2023 Osteopenia, unspecified location 11/22/2023 Post-menopausal Asymptomatic postmenopausal status (age-related) (natural) 11/22/2023 Invasive ductal carcinoma of right breast (HCC) 11/22/2023 Invasive ductal carcinoma of right breast (HCC) 05/12/2024 Invasive ductal carcinoma of right breast (HCC) 09/08/2024 Invasive ductal carcinoma of right breast (HCC) 12/04/2024 Encounter for monitoring aromatase inhibitor therapy Encounter for therapeutic drug monitoring 12/04/2024 Post-menopausal Asymptomatic postmenopausal status (age-related) (natural) 12/04/2024 Osteopenia, unspecified location 12/04/2024 Invasive ductal carcinoma of right breast (HCC) 12/04/2024 Post-menopausal Asymptomatic postmenopausal status (age-related) (natural) 12/19/2024 Invasive ductal carcinoma of right breast (HCC) 10/23/2022 Goals Goal Patient Goal Type Associated Problems Recent Progress Patient-Stated? Author Breast Health Breast Health On track( 024 11:23 AM EST) Cathy Hernández, RN Note: Patient acknowledges understanding of new diagnosis, plan of care, available resources and how to contact Nurse Navigator with any future questions or concerns. Care Teams Scaffold Worker Relationship Specialty Start Date End Date Yas Page MD [address] [place] [address] Radiation Oncologist Radiology-Radiation Oncology 12/03/22
--- OUTSIDE RECORDS SUMMARY | 2025-03-12 10:52 | XMS_ITS | Clinical Summary ---
Author Organization Healthcare Address [address] [place] [address] Care Team Providers Care Gardening Manager Name Role Phone Randolph Diaz MD Primary Care Provider [phone] Social History Tobacco Use Types Packs/Day Years Used Date Smoking Tobacco: Never Assessed Comments Unknown Sex and Gender Information Value Date Recorded Sex Assigned at Not on file Legal Sex Female 2:20 PM EDT Gender Identity Not on file Sexual Orientation Not on file Plan of Treatment Upcoming Encounters Date Type Department Care Team (Late st Contact Info) Description 03/16/2025 11:00 AM EST Office Visit [facility] [address] [place] [address] Cecil Sandoval MD [address] [place] [phone] Health Maintenance Due Date Last Done Comments [facility]-Depression Screening 1962 [facility]-HIV Screening 1962 [facility]-Hepatitis C Screening 1962 [facility]-/Child/Adol SDOH Screenings 1962 [facility]- SDOH Screenings 1980 [facility]-Adult SDOH Screenings 1980 [facility]-DTaP,Tdap,and Td Vaccine s (1 - Tdap) 1981 [facility]-Pap Smear 08/06/1983 [facility]-Cervical Cancer Screening 1992 [facility]-HPV/Cotest 1992 CT Colonography 08/06/2007 Colonoscopy 08/06/2007 FIT-DNA 08/06/2007 FIT 08/06/2007 FOBT 08/06/2007 Sigmoidoscopy 08/06/2007 [facility]-Colorectal Cancer Screening 08/06/2007 [facility]-Breast Cancer Screening 2012 [facility]-Pneumococcal Vaccine: 50 + Years (1 of 1 - PCV) 2012 [facility]-Zoster Vaccines (1 of 2) 2012 [id number]-16 Vaccine (1 - 20 24-25 season) 2025 [facility]-Influenza Vaccine (#1) 2025 [facility]-RSV Vaccine: 60+ Years o r (1 - 1-dose 75+ series) 2037 HPV Vaccines Aged Out No longer eligi ble based on patient's age to complete this topic [facility]-HIB Vaccines Aged Out No longer e ligible based on patient's age to complete this topic [facility]-Hepatitis A Vaccines Aged Out No longer eligible based on patient's age to complete this topic [facility]-IPV Vaccines Aged Out No longer e ligible based on patient's age to complete this topic [facility]-Rotavirus Vaccines Aged Out No lo nger eligible based on patient's age to complete this topic Insurance LISA Care Teams Gardening Manager Relationship Specialty Start Date End Date Randolph Diaz MD [address] [place] [address] PCP - General 08/03/24
--- OUTSIDE RECORDS SUMMARY | 2025-03-12 10:52 | XMS_ITS | Encounter Summary ---
Author Organization [facility] [place] [address] Care Team Providers Care Compotype Operator Name Role Phone Yas Page MD Unavailable Reason for Visit * Reason Onset Date Comments Results 01/31/2025 DEXA scan result s Encounter Details Date Type Department Care Team (Late Contact Info) Description 01/31/2025 Telephone [facility] Women's [place] [phone] Claudette Howell RN Results (DEXA scan results) Social History Tobacco Use Types Packs/Day Years Used Date Smoking Tobacco: Former Cigarettes Q uit: 05/20/2000 Smokeless Tobacco: Never Alcohol Use Standard Drinks/Week Comments Not Currently 0 (1 standard drink = 0.6 oz pur e alcohol) PHQ-2 Answer Date Recorded PHQ-2 Total Score 0 08/17/2023 Comments No Sex and Gender Information Value Date Recorded Sex Assigned at Not on file Legal Sex Female 9:02 PM EDT Gender Identity Not on file Sexual Orientation Not on file documented as of this encounter Miscellaneous Notes * Telephone Encounter - So Bass RN - 02/15/2025 9:14 AM EDT Called and spoke with patient re: DEXA and denise's recommendations. Pt stated she will f/u with her PCP, Loc [facility]. Stated she was thankful for the call. * Telephone Encounter - Claudette Howell RN - 02/09/2025 8:41 AM EDT Attempted contact with patient regarding if PCP will be managing bone health or if she would prefera referral to bone clinic at [facility]. Left voicemail for return call to discuss. * Telephone Encounter - Ilene Staley RN - 02/02/2025 8:44 AM EDT Contacted patient and reviewed results/recommendations from Denise- she would like to discuss PCP first and will let us know if she needs referral to bone clinic. Pt lives over [place] hour away and would like to see if her PCP could manage. Informed patient that I will send her a Agnitus message with Denise's recommendations so she can discuss with PCP. Pt is ok with us calling her the end of next week if we don't hear from her. BHN: call pt 02/09 if we have not heard from her if her PCP will manage bone health * Telephone Encounter - Claudette Howell RN - 01/31/2025 10:43 AM EDT Images from the original note were not included. Attempted contact with patient, unable to leave voicemail; mailbox is full. documented in this encounter Plan of Treatment Upcoming Encounters Date Type Department Care Team (Late st Contact Info) Description 03/13/2025 1:45 PM EST Appointment [facility] [place] [address] Deana Guallpa NP [address] [place] [address] [place] [address] 12/04/2025 12:30 PM EDT Appointment [facility] [place] [address] Denise Apple PA-C [address] [place] [address] 12/04/2025 1:00 PM EDT Appointment [facility] [place] [address] Denise Apple PA-C [address] [place] [address] documented as of this encounter Goals Goal Patient Goal Type Associated Problems Recent Progress Patient-Stated? Author Breast Health Breast Health On track( 024 11:23 AM EST) Cathy Hernández, RN Note: Patient acknowledges understanding of new diagnosis, plan of care, available resources and how to contact Nurse Navigator with any future questions or concerns. documented as of this encounter Visit Diagnoses Not on filedocumented in this encounter Care Teams Compotype Operator Relationship Specialty Start Date End Date Yas Page MD [address] [place] [address] Radiation Oncologist Radiology-Radiation Oncology 12/03/22 documented as of this encounter
--- OUTSIDE RECORDS SUMMARY | 2025-03-12 10:52 | XMS_ITS | Patient Health Record ---
[facility] Address [address] [facility] [address] [place] [id number] Care Team Providers Care Manager Analysis Name Role Phone Cait Patel Primary Care Provider Doug Montalvo Unavailable [phone] Allergies Allergen (clinical drug ingredient) Drug/Non Drug Allergy documented on EMR Reaction Allergy Type Onset Date Status aspirin Aspirin sick to stomach Drug Allergy A ctive phenytoin Dilantin Hallucinations Drug Allergy Ac tive Reason For Referral No Information Medications Medication SIG (Take, Route, Frequency, Duration) Notes Start Date End Date Status Famotidine 40 MG 1 tab(s) orally once a day (at bedtime); Duration: 30 days Active Furosemide 20 MG 1 tablet Orally Once a day; Duration: 90 days Active Allopurinol 300 MG 1 tablet Orally Once a day; Duration: 30 days Active Metoprolol Tartrate 50 MG 1 tablet with food Orally Twice a day 06/28/2023 Active Esomeprazole Magnesium 40 MG TAKE 1 CAPS ULE BY MOUTH EVERY DAY; Duration: 90 Active Metoclopramide HCl 5 mg take 1/2 tablet three times a day as needed; Duration: 60 days Active traMADol HCl 50 MG 1 tab(s) orally four times a day as needed 12/23/2023 Active Align 4 MG 1 cap(s) orally once a day; Duration: 28 day(s) 06/08/2022 Active Letrozole 2.5 MG 1 tablet Orally Once a day; Duration: 30 day(s) Active FIBERCON TABLETS 2 P.O. DAILY 06/08/2022 Active Divalproex Sodium 250 MG 2 am, 1 pm Oral ly Two times a day; Duration: 30 days Active Problems Problem Type SNOMED Code ICD Code Onset Dates Problem Status W/U Status Risk Notes Problem Hyperkalemia (91502552) Hyperkalemia (E87.5) Active confirmed Problem Essential hypertension (66423422) Essential hypertension (I10) Active confirmed Problem Hyperuricemia (01947757) Hyperuricemia (E79.0) Active confirmed Problem Pain of knee region (finding) (5275060060) Pain in unspecified knee (M25.569) Active confirmed Problem Chronic pain (13978836) Other chronic pain (G89.29) Active confirmed Problem Renal insufficiency (318266611) Renal insufficiency (N28.9) Active confirmed Problem Gastroesophageal reflux disease (disorder) (957120034) Chronic GERD (K21.9) Active confirmed Problem Achrochordon (454495377) Achrochordon (L91.8) Active confirmed Problem Osteoarthritis of knee (940604717) Arthropathy of both knees (M17.0) Active confirmed Problem Osteoarthritis of knee (702618234) Primary osteoarthritis of knee, unspecified laterality (M17.10) Active confirmed Problem Gastroesophageal reflux disease with esophagitis (disorder) (068563005) Gastroesophageal reflux disease with esophagitis without hemorrhage (K21.00) Active confirmed Problem Esophageal dysphagia (90705297) Esophageal dysphagia (R13.19) Active confirmed Problem Malignant neoplasm of female breast (760303816) Infiltrating ductal carcinoma of right breast (C50.911) Active confirmed Plan Of Treatment No Information Medications Administered Medication Instructions Date of Administration Dosage Notes Taz 09/05/2018 4 mg Medical (General) History Medical History History ICD Code headache seizures COPD Hx of smoking ductal carcinoma of right breast Surgical History Surgery Date(Month/Year) right lumpectomy, [facility] October 082022 Hospitalization History Reason Date(Month/Year) [facility]-seizures 04/16-04/17/2011
--- OUTSIDE RECORDS SUMMARY | 2025-03-12 10:52 | XMS_ITS | Encounter Summary ---
Author Organization [place] [address] Care Team Providers Care Accounts Payable Accountant Name Role Phone Yas Page MD Unavailable Encounter Details Date Type Department Care Team (Late Contact Info) Description 01/30/2025 Results Follow-Up [facility] [place] [address] Denise Apple PA-C [address] [place] [address] [address] [place] [address] [place] [address] DX BONE DENSITY AXIAL SKELETON Social History Tobacco Use Types Packs/Day Years [...] on file documented as of this encounter Plan of Treatment Upcoming Encounters Date Type Department Care Team (Late Contact Info) Description 03/13/2025 1:45 PM EST Appointment [facility] [place] [address] Deana Guallpa NP [address] [facility] [place] [address] 12/04/2025 12:30 PM EDT Appointment [facility] [place] [id number] Denise Apple PA-C [address] [place] [address] [address] [place] [address] 12/04/2025 1:00 PM EDT Appointment [facility] [place] [address] Denise Apple PA-C [address] [place] [address] [address] [place] [address] documented as of this encounter Goals Goal [...] on filedocumented in this encounter Care Teams Accounts Payable Accountant Relationship Specialty Start Date End Date Yas Page MD [address] [place] [id number] Radiation Oncologist Radiology-Radiation Oncology 12/03/22 documented as of this encounter
--- OUTSIDE RECORDS SUMMARY | 2025-03-12 10:52 | XMS_ITS | Data Portability ---
Author Organization [facility], [facility] [place] [facility] Address [address] [place] [address] Care Team Providers Care Leather Sponger Name Role Phone NAE RANGEL Referring Provider [phone] Assessment No assessment recorded. Plan of Treatment Reminders Order Date Submit Date Provider Last Modified By Organization Details Last Modified Time Details Appointments None recorded. Lab surgical pathology study 2024 025 [facility], [address] [place] [address], [id number], 5 10:59:25 Referral None recorded. Procedures None recorded. Surgeries None recorded. Imaging None recorded. Medication Orders None recorded. Patient TargetsNo targets recorded. Patient InstructionsNo instructions recorded. Reason for Referral None Reported. Results Created Date Observation Date Name Description Value Unit Range Abnormal Flag Note LastModifiedBy Organization Detail LastModifiedTime 11/25/1911/24/2024 SURGI REMEDIOS surgical SEE BELOW [place] topat holog y Repor t NAME: CICI KULKARNI ANNEL PATH: [id number] PROCE DURE DATE: 11/24 SIGNO UT DATE: 11/28 Copy to: Diagn osis: Right Forea rm - ACTIN IC KERAT OSIS SOURC E OF SPECI MEN: SKIN, R FOREA RM CLINI REMEDIOS INFOR MATIO N: R/O: BCC Gross Descr iptio n: The speci men consi sted of a [place] fragm ent which was bisec jerrell and measu red 7 x 7 x < 1 mm. All submi tted in one casse tte. Micro scopi c Descr iptio n: Atypi remedios kerat inocy timi are prese nt withi n the lower epide rmis. ANA PLUNKETT MD [place] d Out Date: 11/28 10:59 1 Not Available [facility] [address] [place], [address], 11/28/2024 10:59:25 Result Notes None recorded. Problems Name Problem SNOMED Code Status Onset Date Resolution Date Notes Provider Name and Address Organization Details Recorded Time Infiltrat ing duct carcinoma of right breast Completed 202210/23/2022 Removal Reason: R breast lumpectomy , SNL bx 10/2022 25 radiation treatments . Avani Colon [facility] 11:36:04 Problem Notes None recorded. Procedures Surgical History Date Name Laterality Status Provider Name and Address Organization Details Recorded Time 11/24/2024 DAK - Cryo AK completed Avani Colon [facility] 11/24/2024 11:37:16 11/24/2024 Blade Biopsy w/ ED&C completed COMFORT MURGUIA PA-C [address] [place], [address], [facility] 11/24/2024 12:00:52 Imaging Results None recorded. Procedure Notes None recorded. Medical Equipment None Reported. Allergies No known drug allergies Medications Name Sig Start Date Stop Date Status Note LastModified by Organization Details LastModified Time calcium active Not Available Not Avail able Not Available letrozole active Not Available Not Shweta ilable Not Available tramadol active Not Available Not Avai lable Not Available furosemide active Not Available Not Av ailable Not Available divalproex active Not Available Not Av ailable Not Available Acidophilus active Not Available Not A vailable Not Available allopurinol active Not Available Not A vailable Not Available Concentrated Fiber active Not Available Not Available Not Available telmisartan active Not Available Not A vailable Not Available esomeprazole magnesium active Not Available Not Available No t Available Vitamin B12 active Not Available Not A vailable Not Available metoclopramide (bulk) active Not Available Not Available Not Available pregabalin active Not Available Not Av ailable Not Available Vitals None Recorded Social History None recorded. Functional Status None recorded. Mental Status None recorded. Family History Relationship Description Onset Age of this Age Resolved Age Notes LastModified by Organization Details LastModified Time Mother Malignant neoplasm of skin [email or web address] Not available 2024 11:30:04 Medical History Condition Response Melanoma N Skin Cancer N Gynecological HistoryNo gynecological history recorded. Obstetrics History GPAL:G 0 P 0 0 0 0 Past Encounters Encounter ID Performer Location Encounter Start Date Encounter Closed Date Diagnosis/Indication Diagnosis SNOMED-CT Code Diagnosis ICD10 Code Diagnosis IMO Codes Diagnosis Note [id number] COMFORT MURGUIA PA-C [place] [address] [place] [address] 11/24/2024 10:44:10 11/24/2024 12:39:28 Multiple benign melanocytic nevi [id number] D22.5 L81.4 D18.01 L82.1 Reassuranc e given about benign appearing skin lesion(s). Zinc and Titanium SPF 30+ sunscreens recommende d. Actinic keratosis 007 L57.0 92926 Precancero us lesions- treatment options discussedT reated w/ Cryotherap y. SE reviewed- blister, discolorat ion, and scarring possible.R ec applying Vaseline x 2wks Advised if any lesions becomes tender, painful, bleeds, or grows rapidly RTC Neoplasm o f uncertain behavior of skin [id number] D48.5 Will bx today. Health Concerns Section Related Observation LastModified by Organization Detai ls LastModified Time None Recorded Concern Status LastModified by Organization Details LastModified Time None Recorded Advance Directives Directive None Recorded Payers Insurance Date Sequence Insurance Name Policy Number Policy Ignacio Covered Member ID Ignacio Member ID Guarantor Name 12/05/2024 1 [place] [id number] Swapna Tran [id number] Swapna Tran Notes Date Note Type Note Provider Name and Address Organization Details Recorded Time 11/24/2024 text/html ROS as noted in the HPI Here for a full body skin examination - last skin check: New Patient - no history of skin cancer - spots of concern today: L cheek, midback, and lower adbomen. COMFORT MURGUIA PA-C [address] [place], [address], [place] [facility] 11/24/2024 12:01:23 OBGyn Episode No OBEpisode recorded.
--- OUTSIDE RECORDS SUMMARY | 2025-03-12 10:52 | XMS_ITS | Encounter Summary ---
Author Organization [place] [address] Care Team Providers Care Digital Computer Operator Name Role Phone Yas Page MD Unavailable Encounter Details Date Type Department Care Team (Late Contact Info) Description 07/14/2022 Lab Requisition [facility] [address] [place] [address] Swapna Benito MD [address] [place] [address] Social History Tobacco Use Types Packs/Day Years Used Date Smoking Tobacco: Former Cigarettes Q uit: 05/20/2000 Smokeless Tobacco: Never Alcohol Use Standard Drinks/Week Comments Not Currently 0 (1 standard drink = 0.6 oz pur e alcohol) Comments No Sex and Gender Information Value Date Recorded Sex Assigned at Not on file Legal Sex Female 9:02 PM EDT Gender Identity Not on file Sexual Orientation Not on file COVID-19 Exposure Response Date Recorded In the last 10 days, have yo u been in contact with someone who was confirmed or suspected to have Coronavirus/COVID-19? No / Unsure 07/03/2022 9:35 AM EST documented as of this encounter Plan of Treatment Upcoming Encounters Date Type Department Care Team (Late Contact Info) Description 03/13/2025 1:45 PM EST Appointment [facility] [place] [address] Deana Guallpa NP [address] [place] [address] [place] [address] 12/04/2025 12:30 PM EDT Appointment [facility] [address] [place] [address] Denise Apple PA-C [address] [place] [address] 12/04/2025 1:00 PM EDT Appointment [facility] [address] [place] [address] Denise Apple PA-C [address] [place] [address] documented as of this encounter Procedures Procedure Name Priority Date/Time Associated Diagnosis Comments CHG CONSLTJ&REPRT REFERRED SLIDES PREPARED ELSEWHERE Routine 07/14/2022 12:02 PM EST documented in this encounter Results * OUTSIDE CASE REPORT (07/14/2022 12:02 PM EST) CASE REPORT Surgical Pathology Report Case: [id number] Authorizing Provider: Swapna Benito MD Collected: 07/14/2022 1202 Ordering Location: [facility] Received: 07/14/2022 1202 Pathologist: Erica Quinones MD Specimen: Breast, Right, Request for outside review on case [id number] slides from [facility] 07/14/2022 1:27 PM EST [facility] FINAL DIAGNOSIS Right breast asymmetric density at 12 o'clock ([id number], collected on 06/01/2022): - Invasive ductal carcinoma, histologic grade 2 (3+2+1). - The invasive tumor measures 9 mm in maximal linear length, multiple cores involved. - The tumor cells are positive for ER (100%, strong), positive for [place] (100%, strong) and equivocal/2+ for HER-2 by IHC. - The tumor cells are negative for HER-2 by FISH studies. This case was reviewed by additional departmental pathologist with diagnostic agreement. /EK 07/14/2022 1:27 PM EST [facility] at 1326 EST COMMENT 07/14/2022 1:27 PM EST [facility] GROSS DESCRIPTION Received from [facility] are 8 H and E stained and 5 immunohistochemical stained slides labeled with the patient's name, [id number], collected on 06/03/2022 and accompanied surgical pathology report. 07/14/2022 1:27 PM EST [facility] MICROSCOPIC DESCRIPTION Microscopic examination is performed and the findings corroborate the diagnosis. 07/14/2022 1:27 PM EST [facility] EMBEDDED IMAGES 07/14/2022 1:27 PM EST [facility] Tissue RIGHT BREAST STRUCTURE / Unknown 07/14/2022 12:02 PM EST 07/14/2022 12:02 PM EST us Swapna Benito MD PATHOLOGY ORDERABLES Final Result Performing Organization Address City/State/[facility] Co de Phone Number [facility] [address] [place] [address] documented in this encounter Visit Diagnoses Not on filedocumented in this encounter Care Teams Digital Computer Operator Relationship Specialty Start Date End Date Yas Page MD [address] [place], [place] [id number] Radiation Oncologist Radiology-Radiation Oncology 12/03/22 documented as of this encounter
[2025-03-12 11:03] LABS: Microscopic, Urine URINE MICROSCOPIC (MICROSCOPIC)
[2025-03-12 11:27] LABS: Hematocrit 43.3 % (37.0-47.0); Hemoglobin 13.2 g/dL (12.2-16.2); Immature Granulocytes % 0.7 %; Mean Corpuscular HGB Conc 30.5 g/dL (31.8-35.4); Mean Corpuscular Hemoglobin 28.9 pg (27.0-31.2); Mean Corpuscular Volume 95.0 fl (81-99); Nucleated Red Blood Cells % 0.2 %; Platelet Count 134 K/mm3 (142-424); Red Blood Count 4.56 M/mm3 (4.20-5.40); Red Cell Distribution Width-SD 52.1 fL; White Blood Count 9.2 K/mm3 (4.8-10.8)
[2025-03-12 11:49] LABS: Albumin Level 4.3 g/dl (3.5-5.0); Anion Gap 13.2 mEq/L (5-15); Blood Urea Nitrogen 26 mg/dl (7-17); Calcium 9.7 mg/dl (8.4-10.2); Carbon Dioxide 30 mmol/L (22.0-30.0); Chloride 98 mmol/L (98-107); Creatinine,Serum 1.30 mg/dl (0.52-1.04); Estimated Glomerular Filt Rate 42 ml/min (>60); GFR (African American) 50 ML/MIN (>60); Glucose 93 mg/dl (74-100); Phosphorous 3.7 mg/dl (2.5-4.5); Potassium 3.2 mmoL/L (3.5-5.1); Sodium 138 mmol/L (136-145)
[2025-03-12 12:01] LABS: 25-OH Vitamin D, Total 16.4 ng/mL (30-100)
[2025-03-12 12:15] LABS: Bilirubin,Urine Negative (Negative); Color,Urine YELLOW (Yellow); Glucose,Urine (UA) Negative (Negative); Ketones,Urine TRACE (Negative); Leukocyte Esterase,Urine 1+ (Negative); PH,Urine 6.0 (5.0-8.5); Protein,Urine TRACE (Negative); Specific Gravity, Urine 1.025 (1.005-1.030); Urobilinogen,Urine 1.0 EU/dl (0.2)
[2025-03-12 12:57] LABS: Amorphous Sediment,Urine 4+ /lpf; Bacteria,Urine 4+ /lpf; Squamous Epithelial Cell,Urine Occasional #/hpf (0-5)
== END 2025-03-12 23:59 | disposition home or self-care (01) ==
LOC: LAB 10:39
PROVIDERS: PCP Internal Medicine; Visit Provider Student in an Organized Health Care Education/Training Program
DX: N18.30 Chronic kidney disease, stage 3 unspecified (principal); E55.9 Vitamin D deficiency, unspecified
CPT/HCPCS: 36415; 80069; 81001; 82306; 82570; 83970; 84156; 85025; 87086; 87088